=== PATIENT | male | born 1965 | race Caucasian/White ===

== ENCOUNTER 2024-03-08 11:47 | Inpatient (IN) ==
[2024-03-08 12:38] LABS: Basophils # (auto) 0.01 K/uL (0.00-0.20); Basophils % (auto) 0.1 %; Eosinophils # (auto) 0.02 K/uL (0.00-0.50); Eosinophils % (auto) 0.2 %; Hematocrit (blood only) 42.4 % (42.0-52.0); Hemoglobin 14.4 g/dl (14.0-18.0); Immature Granulocytes # (auto) 0.05 K/uL (0.01-0.20); Immature Granulocytes % (auto) 0.4 %; Lymphocytes # (auto) 0.74 K/uL (1.20-3.40); Lymphocytes % (auto) 6.2 %; Mean Corpuscular Hemoglobin 29.2 pg (25.0-34.0); Mean Platelet Volume 12.1 fL (9.4-12.4); Monocytes # (auto) 0.68 K/uL (0.11-0.59); Monocytes % (auto) 5.7 %; Neutrophils # (auto) 10.52 K/uL (1.40-6.50); Neutrophils % (auto) 87.4 %; Platelet Count 116 K/uL (130-400); RDW Coefficient of Variation 12.3 % (11.5-14.5); RDW Standard Deviation 38.4 fL (36.4-46.3); Red Blood Count 4.93 M/uL (4.70-6.10); White Blood Count 12.02 K/ul (4.8-10.8)
[2024-03-08 12:58] LABS: Albumin Globulin Ratio 1.7 (0.9-2); Albumin Level 4.8 gm/dl (3.4-5.0); BUN Creatinine Ratio 18.8 (10-20); Bilirubin,Total 1.2 mg/dl (0.2-1.0); Calcium 9.6 mg/dl (8.6-10.3); Creatinine Clr Calc Pharmacy 126.4 ml/min; Est GFR (African American) 112.5 ml/min; Est GFR (Non-African American) 97.1 ml/min; Globulin 2.8 gm/dl (2.5-4.0); Potassium 3.7 mmol/L (3.5-5.1); Total Protein 7.6 gm/dl (6.0-8.3)
--- NOTE | 2024-03-08 14:35 | Emergency Department Note ---
Impression & Plan Sepsis, Prostatitis, Low platelet count, BPH loc w urin obs/LUTS, Indwelling Chávez catheter present ED Provider Note NAME: ROSITA HAM AGE: 58 SEX: M : 1965 ARRIVES VIA: Walk-In INFORMANT: Patient ED PROVIDER(S): Shiva Fernández MD CHIEF COMPLAINT: Bladder spasm, fevers, referred. PLAN: Disposition: Admit MEDICAL DECISION MAKING: The patient is a pleasant 58-year-old gentleman with a past medical history of BPH with lower urinary tract symptoms, urinary retention, UTI, current indwelling Chávez catheter for the past month who presents to the emergency department via walk-in referred by his urology office after the patient had developed symptoms of bladder spasm yesterday and was instructed to provide a urine sample to rule out urinary infection. When the patient was dropping this urine sample off he was feeling feverishness and shaking and asked for his temperature be taken at the lab and was 103 per their report. After this they were referred to the emergency department for evaluation. Patient reports since then his chills have resolved but he was again febrile on assessment at 38.2. He reports some intermittent nausea. Denies any cough or congestion. Denies any chest pain or shortness of breath. Of note, the patient did arrive to emergency department during time of high volume, acuity and prolonged emergency department waiting times. Critical pathways initiated from triage. On evaluation the patient is no acute distress, febrile to 38.2 with heart in the 110s and vital signs otherwise stable. He appears clinically dry. Abdomen is nontender. WBC 12 K with neutrophil predominance though no left shift. H/H within normal limits. Platelets 116 K, decreased from prior and nonspecific. There is mild lymphopenia 0.74. Chemistry without metabolic acidosis. Lactic acid 1.5, within normal limits. Lipase is not elevated. LFTs unremarkable. UA obtained from catheter with new bag was suggestive of infection with positive nitrites and bacteria. CT of the pelvis was performed and demonstrates evidence of severe cystitis as well as suspicion for component of prostatitis with surrounding inflammation in the setting of the patient's symptoms. Blood cultures were obtained and empiric treatment was initiated with IV ceftriaxone which per the patient's prior culture which grew Klebsiella pneumonia this was sensitive. Patient treated with 30 cc/kg IBW of IV fluid hydration with normal saline including 2500 cc of normal saline in addition to 100 cc of IV APAP and 50 cc of IV ceftriaxone. Of note, given the patient's mild thrombocytopenia with lymphopenia testing for tickborne illness was ordered though less likely to be cause of fever/acute illness at this time. Lyme screen and Anaplasma Babesia smear were negative. Patient is agree with plan for admission for further management. Case was d/w [facility] hospitalist who will evaluate the patient for admission. Triage Nursing notes reviewed and agree them. Prior/external medical records reviewed Vital Signs: reviewed Differential diagnosis: Renal colic, UTI, appendicitis, diverticulitis, mesenteric ischemia, aortic pathology, infections, inflammatory bowel disease, PUD, biliary pathology, as well as other pathologies. ER treatment provided: See below. Diagnostics interpreted by me: Cardiac Monitoring: An order for continuous cardiac monitoring was placed and demonstrated sinus tachycardia, 113 bpm, no ectopy. Laboratory studies: See below Imaging studies: See below Consultation(s): Case was d/w [facility] hospitalist who will evaluate the patient for admission. HPI: The patient is a pleasant 58-year-old gentleman with a past medical history of BPH with lower urinary tract symptoms, urinary retention, UTI, current indwelling Chávez catheter for the past month who presents to the emergency department via walk-in referred by his urology office after the patient had developed symptoms of bladder spasm yesterday and was instructed to provide a urine sample to rule out urinary infection. When the patient was dropping this urine sample off he was feeling feverishness and shaking and asked for his temperature be taken at the lab and was 103 per their report. After this they were referred to the emergency department for evaluation. Patient reports since then his chills have resolved but he was again febrile on assessment at 38.2. He reports some intermittent nausea. Denies any cough or congestion. Denies any chest pain or shortness of breath. ROS: See above HPI for pertinent positives & negatives. A total of 10 systems reviewed and were otherwise negative. VITALS:See Below PHYSICAL EXAMINATION: GENERAL: Awake, alert, fatigued-appearing, in no distress HENT: Normocephalic, atraumatic. Oropharynx with dry mucous membranes and otherwise unremarkable. EYES: Normal conjunctiva. Sclera non-icteric. NECK: Supple. No nuchal rigidity. FROM. No JVD. RESPIRATORY: Clear to auscultation. CARDIAC: Tachycardic rate, normal rhythm. Extremities warm and well perfused. Pulses equal. ABDOMEN: Soft, non-distended. No tenderness to palpation. No rebound or guarding. No masses. : Chávez catheter present. MUSCULOSKELETAL: Chest examination reveals no tenderness. The back is symmetrical on inspection without obvious abnormality. There is no CVA tenderness to palpation. No joint edema. LOWER EXTREMITIES: Calves are equal size bilaterally and non-tender. No edema. No discoloration. NEURO: Normal sensorium. No sensory or motor deficits noted. SKIN: No rash or jaundice noted. ED COURSE: Critical Care: I have personally spent greater than 35 minutes of critical care time in the direct management of this patient. This includes bedside care, interpretation of diagnostic studies, and testing, discussion with consultants, patient, and family members, and other required patient management activities. This 35 minutes is in excess of all separately billable procedures. Shiva Fernández MD Past Med/Surg History Medical History (Updated 03/09/24 @ 00:32 by Shiva Fernández MD) TOMY (obstructive sleep apnea) Hypertension BPH loc w urin obs/LUTS Social History Smoking Status: Former smoker Tobacco Type: Cigars Do You Dip or Chew Tobacco: No; Hx Alcohol Use: Yes Alcohol type: beer and wine Hx Substance Use: No Preferred Language: Liberian Communication Ability: Effective Ultrasound Tester Required: No Beliefs That Will Affect Care: None Current Living Situation: Significant Other Other Information That Helps Us Care for You: No Feels Safe at Home: Yes Safety Concerns: Feels Safe At This Time Assistive Devices: CPAP Allergies Allergies Allergy/AdvReac Type Severity Reaction Status Date / Time pollen extracts Allergy Unknown Verified 03/08/24 20:37 SEASONAL Allergy Intermediate ITCHY EYES Uncoded 03/08/24 14:47 , CONGESTION Home Meds Home Medications Medication Instructions Recorded Confirmed coQ10 (ubiquinol) 100 mg capsule 0 mg PO QAM 02/04/24 03/08/24 amlodipine 5 mg tablet (Norvasc) 5 mg PO QAM 03/08/24 03/08/24 cholecalciferol (vitamin D3) 10 0 unit PO QAM 03/08/24 03/08/24 mcg (400 unit) tablet (Vitamin D3) tamsulosin 0.4 mg capsule 0.4 mg PO QAM 03/08/24 03/08/24 Previous Rx's Medication Instructions Recorded oxybutynin chloride 5 mg tablet 5 mg PO Q8H PRN bladder spasms #30 03/08/24 tabs Results & Data (ED) Vital Signs Vital Signs - 24 hr 03/08/24 11:55 03/08/24 14:51 03/08/24 14:53 Temperature 37.5 C 38.2 C H Temperature Source Oral Oral Pulse Rate 113 H 109 H Pulse Rate [Apical] 110 H Pulse Rate from SpO2 Sensor 109 H Respiratory Rate 18 18 24 Respiratory Effort / Characteristics Non-Labored Non-Labored Spontaneous Respiratory Depth Normal Normal Respiratory Pattern Regular Regular Blood Pressure 146/72 H Blood Pressure [Right Arm] 159/97 H Blood Pressure Mean 96 Blood Pressure Mean [Right Arm] 117 Blood Pressure Position [Right Arm] Lying Pulse Oximetry 98 97 96 Oxygen Delivery Method Room Air Room Air Sepsis Recent Fever Within 48 Hours Yes Sepsis New/Unexplained Change in Mental Status N/A Sepsis Action Taken by Nursing No Action Required 03/08/24 15:00 03/08/24 15:10 03/08/24 15:20 Temperature Temperature Source Pulse Rate 111 H 103 H 105 H Pulse Rate [Apical] Pulse Rate from SpO2 Sensor 112 H 102 H 103 H Respiratory Rate 20 15 15 Respiratory Effort / Characteristics Respiratory Depth Respiratory Pattern Blood Pressure Blood Pressure [Right Arm] Blood Pressure Mean Blood Pressure Mean [Right Arm] Blood Pressure Position [Right Arm] Pulse Oximetry 95 97 95 Oxygen Delivery Method Sepsis Recent Fever Within 48 Hours Sepsis New/Unexplained Change in Mental Status Sepsis Action Taken by Nursing 03/08/24 15:30 03/08/24 15:40 03/08/24 15:47 Temperature Temperature Source Pulse Rate 103 H 102 H Pulse Rate [Apical] Pulse Rate from SpO2 Sensor 103 H 102 H Respiratory Rate 17 20 Respiratory Effort / Characteristics Respiratory Depth Respiratory Pattern Blood Pressure 149/88 H Blood Pressure [Right Arm] Blood Pressure Mean 102 Blood Pressure Mean [Right Arm] Blood Pressure Position [Right Arm] Pulse Oximetry 95 95 Oxygen Delivery Method Sepsis Recent Fever Within 48 Hours Sepsis New/Unexplained Change in Mental Status Sepsis Action Taken by Nursing 03/08/24 15:47 03/08/24 15:48 03/08/24 16:07 Temperature Temperature Source Pulse Rate 91 H 99 H Pulse Rate [Apical] 99 H Pulse Rate from SpO2 Sensor 93 H 99 H Respiratory Rate 14 21 18 Respiratory Effort / Characteristics Non-Labored Respiratory Depth Normal Respiratory Pattern Blood Pressure Blood Pressure [Right Arm] 149/88 H Blood Pressure Mean Blood Pressure Mean [Right Arm] 108 Blood Pressure Position [Right Arm] Pulse Oximetry 94 94 94 Oxygen Delivery Method Room Air Sepsis Recent Fever Within 48 Hours Sepsis New/Unexplained Change in Mental Status Sepsis Action Taken by Nursing 03/08/24 16:10 03/08/24 16:15 03/08/24 16:15 Temperature Temperature Source Pulse Rate 95 H 95 H Pulse Rate [Apical] Pulse Rate from SpO2 Sensor 96 H 94 H Respiratory Rate 22 Respiratory Effort / Characteristics Respiratory Depth Respiratory Pattern Blood Pressure 135/65 Blood Pressure [Right Arm] Blood Pressure Mean 84 Blood Pressure Mean [Right Arm] Blood Pressure Position [Right Arm] Pulse Oximetry 94 96 Oxygen Delivery Method Sepsis Recent Fever Within 48 Hours Sepsis New/Unexplained Change in Mental Status Sepsis Action Taken by Nursing 03/08/24 16:20 03/08/24 16:30 03/08/24 16:30 Temperature Temperature Source Pulse Rate 95 H 91 H Pulse Rate [Apical] Pulse Rate from SpO2 Sensor 95 H 92 H Respiratory Rate 23 18 Respiratory Effort / Characteristics Respiratory Depth Respiratory Pattern Blood Pressure 135/75 Blood Pressure [Right Arm] Blood Pressure Mean 89 Blood Pressure Mean [Right Arm] Blood Pressure Position [Right Arm] Pulse Oximetry 90 92 Oxygen Delivery Method Sepsis Recent Fever Within 48 Hours Sepsis New/Unexplained Change in Mental Status Sepsis Action Taken by Nursing 03/08/24 16:40 03/08/24 16:50 03/08/24 17:00 Temperature Temperature Source Pulse Rate 90 84 90 Pulse Rate [Apical] Pulse Rate from SpO2 Sensor 90 85 Respiratory Rate 18 18 19 Respiratory Effort / Characteristics Respiratory Depth Respiratory Pattern Blood Pressure 128/73 Blood Pressure [Right Arm] Blood Pressure Mean 91 Blood Pressure Mean [Right Arm] Blood Pressure Position [Right Arm] Pulse Oximetry 94 93 95 Oxygen Delivery Method Room Air Sepsis Recent Fever Within 48 Hours Sepsis New/Unexplained Change in Mental Status Sepsis Action Taken by Nursing 03/08/24 17:30 03/08/24 18:00 Temperature Temperature Source Pulse Rate 96 H 90 Pulse Rate [Apical] Pulse Rate from SpO2 Sensor Respiratory Rate 15 14 Respiratory Effort / Characteristics Respiratory Depth Respiratory Pattern Blood Pressure 132/79 136/85 Blood Pressure [Right Arm] Blood Pressure Mean 96 102 Blood Pressure Mean [Right Arm] Blood Pressure Position [Right Arm] Pulse Oximetry 96 98 Oxygen Delivery Method Room Air Room Air Sepsis Recent Fever Within 48 Hours Sepsis New/Unexplained Change in Mental Status Sepsis Action Taken by Nursing Laboratory Data Attestation: I reviewed the patient's lab results. 03/08/24 12:15 03/08/24 12:15 Lab Results 03/08/24 03/08/24 03/08/24 Range/Units 12:15 15:05 15:49 WBC 12.02 H (4.8-10.8) K/ul RBC 4.93 (4.70-6.10) M/uL Hgb 14.4 (14.0-18.0) g/dl Hct 42.4 (42.0-52.0) % MCV 86.0 (80.0-100.0) fL MCH 29.2 (25.0-34.0) pg MCHC 34.0 (32.0-36.0) g/dL RDW Std Deviation 38.4 (36.4-46.3) fL RDW Coeff of [place] 12.3 (11.5-14.5) % Plt Count 116 L (130-400) K/uL MPV 12.1 (9.4-12.4) fL Immature Gran % (Auto) 0.4 % Neut % (Auto) 87.4 % Lymph % (Auto) 6.2 % [place] % (Auto) 5.7 % Eos % (Auto) 0.2 % Baso % (Auto) 0.1 % Neut # (Auto) 10.52 H (1.40-6.50) K/uL Lymph # (Auto) 0.74 L (1.20-3.40) K/uL [place] # (Auto) 0.68 H (0.11-0.59) K/uL Eos # (Auto) 0.02 (0.00-0.50) K/uL Baso # (Auto) 0.01 (0.00-0.20) K/uL Immature Gran # (Auto) 0.05 (0.01-0.20) K/uL ESR 10 (0-20) mm/hr Sodium 137 (136-145) mmol/L Potassium 3.7 (3.5-5.1) mmol/L Chloride 104 (98-107) mmol/L Carbon Dioxide 26 (21-32) mmol/L Anion Gap 7 (3-11) BUN 15 (6-23) mg/dl Creatinine 0.80 (0.6-1.4) mg/dl Est Cr Clr Drug Dosing 126.4 ml/min Est GFR ( Amer) 112.5 ml/min Est GFR (Non-Af Amer) 97.1 ml/min BUN/Creatinine Ratio 18.8 (10-20) Glucose 139 H (70-99(Fasting)) mg/dl Lactate 1.5 (0.4-2.0) mmol/L Calcium 9.6 (8.6-10.3) mg/dl Total Bilirubin 1.2 H (0.2-1.0) mg/dl AST 23 (13-39) U/L ALT 26 (7-52) U/L Alkaline Phosphatase 109 H (34-104) U/L C-Reactive Protein 0.64 H (0-0.5) mg/dl Total Protein 7.6 (6.0-8.3) gm/dl Albumin 4.8 (3.4-5.0) gm/dl Globulin 2.8 (2.5-4.0) gm/dl Albumin/Globulin Ratio 1.7 (0.9-2) Lipase 15 (11-82) U/L Procalcitonin Cancelled Urine Color Yellow Urine Appearance Clear (Clear) Urine pH 8.5 H (4.5-7.5) Ur Specific [place] 1.013 (1.000-1.030) Urine Protein Trace H (Negative) Urine Glucose (UA) Negative (Negative) Urine Ketones 1+ H (Negative) Urine Blood 3+ H (Negative) Urine Nitrite Positive A (Negative) Urine Bilirubin Negative (Negative) Urine Urobilinogen Negative (Negative) Ur Leukocyte Esterase 3+ H (Negative) Urine WBC (Auto) >50 H (0-5) /hpf Urine RBC (Auto) >20 H (0-2) /hpf U Hyaline Cast (Auto) 0-2 (0-2) /lpf U Epithel Cells (Auto) 0-2 (0-2) /hpf Urine Bacteria (Auto) 1+ H (None Seen) Adenovirus (PCR) Not Detected (NotDetected) Anaplasma Smear See Comment Babesia Smear See Comment B. pertussis DNA (PCR) Not Detected (NotDetected) B.parapertussis DNA PCR Not Detected (NotDetected) Lyme Disease Screen Negative (Negative) C. pneumoniae DNA (PCR) Not Detected (NotDetected) Coronavirus OC43 (PCR) Not Detected (NotDetected) Coronavirus HKU1 (PCR) Not Detected (NotDetected) Coronavirus 229E (PCR) Not Detected (NotDetected) SARS-CoV-2 (PCR) Not Detected (NotDetected) Coronavirus NL63 (PCR) Not Detected (NotDetected) Human Metapneumovir PCR Not Detected (NotDetected) Influenza Type A (PCR) Not Detected (NotDetected) Influenza Type B (PCR) Not Detected (NotDetected) M. pneumoniae (PCR) Not Detected (NotDetected) Parainfluenza 1 (PCR) Not Detected (NotDetected) Parainfluenza 2 (PCR) Not Detected (NotDetected) Parainfluenza 3 (PCR) Not Detected (NotDetected) Parainfluenza 4 (PCR) Not Detected (NotDetected) RSV (PCR) Not Detected (NotDetected) Entero/Rhino (PCR) Not Detected (NotDetected) 03/08/24 Range/Units 17:49 WBC (4.8-10.8) K/ul RBC (4.70-6.10) M/uL Hgb (14.0-18.0) g/dl Hct (42.0-52.0) % MCV (80.0-100.0) fL MCH (25.0-34.0) pg MCHC (32.0-36.0) g/dL RDW Std Deviation (36.4-46.3) fL RDW Coeff of Ro[place] (11.5-14.5) % Plt Count (130-400) K/uL MPV (9.4-12.4) fL Immature Gran % (Auto) % Neut % (Auto) % Lymph % (Auto) % [place] % (Auto) % Eos % (Auto) % Baso % (Auto) % Neut # (Auto) (1.40-6.50) K/uL Lymph # (Auto) (1.20-3.40) K/uL [place] # (Auto) (0.11-0.59) K/uL Eos # (Auto) (0.00-0.50) K/uL Baso # (Auto) (0.00-0.20) K/uL Immature Gran # (Auto) (0.01-0.20) K/uL ESR (0-20) mm/hr Sodium (136-145) mmol/L Potassium (3.5-5.1) mmol/L Chloride (98-107) mmol/L Carbon Dioxide (21-32) mmol/L Anion Gap (3-11) BUN (6-23) mg/dl Creatinine (0.6-1.4) mg/dl Est Cr Clr Drug Dosing ml/min Est GFR ( Amer) ml/min Est GFR (Non-Af Amer) ml/min BUN/Creatinine Ratio (10-20) Glucose (70-99(Fasting)) mg/dl Lactate (0.4-2.0) mmol/L Calcium (8.6-10.3) mg/dl Total Bilirubin (0.2-1.0) mg/dl AST (13-39) U/L ALT (7-52) U/L Alkaline Phosphatase (34-104) U/L C-Reactive Protein (0-0.5) mg/dl Total Protein (6.0-8.3) gm/dl Albumin (3.4-5.0) gm/dl Globulin (2.5-4.0) gm/dl Albumin/Globulin Ratio (0.9-2) Lipase (11-82) U/L Procalcitonin Urine Color Yellow Urine Appearance Clear (Clear) Urine pH 7.5 (4.5-7.5) Ur Specific [place] 1.021 (1.000-1.030) Urine Protein Negative (Negative) Urine Glucose (UA) Negative (Negative) Urine Ketones Negative (Negative) Urine Blood 3+ H (Negative) Urine Nitrite Negative (Negative) Urine Bilirubin Negative (Negative) Urine Urobilinogen Negative (Negative) Ur Leukocyte Esterase 2+ H (Negative) Urine WBC (Auto) >50 H (0-5) /hpf Urine RBC (Auto) >20 H (0-2) /hpf U Hyaline Cast (Auto) 0-2 (0-2) /lpf U Epithel Cells (Auto) 0-2 (0-2) /hpf Urine Bacteria (Auto) None Seen (None Seen) Adenovirus (PCR) (NotDetected) Anaplasma Smear Babesia Smear B. pertussis DNA (PCR) (NotDetected) B.parapertussis DNA PCR (NotDetected) Lyme Disease Screen (Negative) C. pneumoniae DNA (PCR) (NotDetected) Coronavirus OC43 (PCR) (NotDetected) Coronavirus HKU1 (PCR) (NotDetected) Coronavirus 229E (PCR) (NotDetected) SARS-CoV-2 (PCR) (NotDetected) Coronavirus NL63 (PCR) (NotDetected) Human Metapneumovir PCR (NotDetected) Influenza Type A (PCR) (NotDetected) Influenza Type B (PCR) (NotDetected) M. pneumoniae (PCR) (NotDetected) Parainfluenza 1 (PCR) (NotDetected) Parainfluenza 2 (PCR) (NotDetected) Parainfluenza 3 (PCR) (NotDetected) Parainfluenza 4 (PCR) (NotDetected) RSV (PCR) (NotDetected) Entero/Rhino (PCR) (NotDetected) Administered Medications Oxybutynin Chloride (Oxybutynin Chloride 5 Mg Tab) 5 mg PO Q8H PRN PRN Reason: bladder spasms Stop: 04/07/24 20:30 Last Admin: 03/08/24 21:16 Dose: 5 mg Documented By: BEARTIS Discontinued Medications Acetaminophen (Ofirmev) 1,000 mg in 100 mls @ 400 mls/hr IV NOW STA Stop: 03/08/24 15:12 Last Infusion: 03/08/24 16:05 Dose: Infused Documented By: Admin: 03/08/24 15:26 Dose: 400 mls/hr Documented By: MONIQUE Sodium Chloride (Nss) 1,000 mls @ 999 mls/hr IV .Q1H1M MARGI Stop: 03/08/24 17:00 Last Infusion: 03/08/24 18:00 Dose: Infused Documented By: Admin: 03/08/24 16:37 Dose: 999 mls/hr Documented By: Infusion: 04/18/24 16:34 Dose: Infused Documented By: Admin: 03/08/24 15:26 Dose: 999 mls/hr Documented By: MONIQUE Sodium Chloride (Nss) 500 mls @ 999 mls/hr IV .Q31M ONE Stop: 03/08/24 15:30 Last Infusion: 03/08/24 16:34 Dose: Infused Documented By: Admin: 03/08/24 15:26 Dose: 999 mls/hr Documented By: MONIQUE Ceftriaxone Sodium (Rocephin) 2,000 mg in 50 mls @ 100 mls/hr IV NOW STA Stop: 03/08/24 15:29 Last Infusion: 03/08/24 16:43 Dose: Infused Documented By: Admin: 03/08/24 16:11 Dose: 100 mls/hr Documented By: MONIQUE Ioversol (Optiray 320 100ml) 94 ml IV ONCE ONE Stop: 03/08/24 16:02 Last Admin: 03/08/24 16:01 Dose: 94 ml Documented By: ROBERT Ondansetron HCl (Ondansetron Inj 2 Mg/Ml 2 Ml Vial) 4 mg IV NOW STA Stop: 03/08/24 15:03 Last Admin: 03/08/24 15:26 Dose: 4 mg Documented By: MONIQUE Imaging Data Radiologist's Impression: Abdomen/Pelvis CT 03/08/24 15:00 CT SCAN OF THE ABDOMEN AND PELVIS WITH IV CONTRAST CLINICAL HISTORY: Sepsis. COMPARISON STUDY: Abdominal CT dated 02/16/2024. TECHNIQUE: Following the IV administration of 94 cc of Optiray 320, CT scan of the abdomen and pelvis is performed from the lung bases to the proximal femora. Images are reviewed in the axial, sagittal, and coronal planes. IV contrast was administered without complication. A dose lowering technique was utilized adhering to the principles of ALARA. CT DOSE: 1366.17 mGy.cm FINDINGS: Lung bases: The heart is normal in size and without pericardial effusion. The lung bases are clear. Liver: The contrast-enhanced liver is normal in size, contour, and attenuation. There is no intrahepatic biliary ductal dilatation. The hepatic veins and portal veins are patent. Gallbladder: Unremarkable. Spleen: Normal in size and attenuation. Pancreas: Unremarkable. Adrenal glands: Unremarkable. Kidneys: The contrast enhanced kidneys are normal in size and without hydronephrosis. The kidneys enhance symmetrically. Renal cysts measure up to 3.5 cm. Additional subcentimeter cortical hypodensities also likely represent cysts but are too small for definitive characterization. Abdominal vasculature: The abdominal aorta is normal in course and caliber noting mild atherosclerotic calcification. Bowel: No bowel obstruction is seen. The appendix is well-visualized and normal. Peritoneum: There is no intraperitoneal free air or abdominal ascites. There is a fat-containing umbilical hernia. Lymphadenopathy: None. Pelvic viscera: The prostate gland is markedly enlarged and heterogeneous. The bladder is partially decompressed and a Chávez catheter. The bladder wall is markedly thickened with surrounding inflammation. There are foci of nonspecific intraluminal gas. Inflammatory change is also seen around the prostate and seminal vesicles. Skeletal structures: There is mild to moderate lumbosacral spondylosis. No lytic or blastic lesions are seen. IMPRESSION: 1. There is evidence of a severe cystitis. Correlate with clinical findings and urinalysis. 2. Marked prostatomegaly. Correlate with serum PSA levels. 3. Infiltration is also seen around the prostate and seminal vesicles. A concurrent prostatitis is not excluded. 4. Additional findings as above. ACT 112: Negative or not required by law. Electronically signed by: Gustavo Fournier M.D. 03/08/2024 4:21 PM Discharge Plan Visit Data Chief Complaint: Fever Stated Complaint: FEVER, ED Provider: Shiva Fernández Discharge Problem: Sepsis, Prostatitis, Low platelet count, BPH loc w urin obs/LUTS, Indwelling Chávez catheter present Patient Disposition: Admitted As Inpatient Discharge Instructions Interventions: ED Discharge Assessment Last Done: 03/08/24 20:31 Discharge Problem: Sepsis Qualifiers: Sepsis type: sepsis due to unspecified organism Sepsis acute organ dysfunction status: without acute organ dysfunction Qualified Code(s): A41.9 - Sepsis, unspecified organism Prostatitis Qualifiers: Prostatitis type: acute Qualified Code(s): N41.0 - Acute prostatitis
[2024-03-08] MEDS: ONDANSETRON INJ 2 MG/ML 2 ML VIAL IV STA (15:26)
[2024-03-08] MEDS: ACETAMINOPHEN 1,000 MG/100 ML VIAL IV STA (15:26)
[2024-03-08] MEDS: SODIUM CHLORIDE 0.9% 500 ML IV ONE (15:26)
[2024-03-08] MEDS: SODIUM CHLORIDE 0.9% 1,000 ML IV SCH (15:26)
[2024-03-08] MEDS: OPTIRAY 320 100ml IV ONE (16:01)
[2024-03-08] MEDS: cefTRIAXone SODIUM 2,000 MG/50 ML BAG IV STA (16:11)
--- NOTE | 2024-03-08 16:23 | CT Scan Report ---
CT SCAN OF THE ABDOMEN AND PELVIS WITH IV CONTRAST CLINICAL HISTORY: Sepsis. COMPARISON STUDY: Abdominal CT dated 02/16/2024. TECHNIQUE: Following the IV administration of 94 cc of Optiray 320, CT scan of the abdomen and pelvi s is performed from the lung bases to the proximal femora. Images are reviewed in the axial, sagittal , and coronal planes. IV contrast was administered without complication. A dose lowering technique wa s utilized adhering to the principles of ALARA. CT DOSE: 1366.17 mGy.cm FINDINGS: Lung bases: The heart is normal in size and without pericardial effusion. The lung bases are clear. Liver: The contrast-enhanced liver is normal in size, contour, and attenuation. There is no intrahepa tic biliary ductal dilatation. The hepatic veins and portal veins are patent. Gallbladder: Unremarkable. Spleen: Normal in size and attenuation. Pancreas: Unremarkable. Adrenal glands: Unremarkable. Kidneys: The contrast enhanced kidneys are normal in size and without hydronephrosis. The kidneys enh ance symmetrically. Renal cysts measure up to 3.5 cm. Additional subcentimeter cortical hypodensities also likely represent cysts but are too small for definitive characterization. Abdominal vasculature: The abdominal aorta is normal in course and caliber noting mild atheroscleroti c calcification. Bowel: No bowel obstruction is seen. The appendix is well-visualized and normal. Peritoneum: There is no intraperitoneal free air or abdominal ascites. There is a fat-containing umbi lical hernia. Lymphadenopathy: None. Pelvic viscera: The prostate gland is markedly enlarged and heterogeneous. The bladder is partially d ecompressed and a Chávez catheter. The bladder wall is markedly thickened with surrounding inflammatio n. There are foci of nonspecific intraluminal gas. Inflammatory change is also seen around the prosta te and seminal vesicles. Skeletal structures: There is mild to moderate lumbosacral spondylosis. No lytic or blastic lesions a re seen. IMPRESSION: 1. There is evidence of a severe cystitis. Correlate with clinical findings and urinalysis. 2. Marked prostatomegaly. Correlate with serum PSA levels. 3. Infiltration is also seen around the prostate and seminal vesicles. A concurrent prostatitis is no t excluded. 4. Additional findings as above. ACT 112: Negative or not required by law. Electronically signed by: Gustavo Fournier M.D. 03/08/2024 4:21 PM
[2024-03-08 16:24] LABS: Appearance Urine Clear (Clear); Bacteria Urine Automated 1+ (None Seen); Bilirubin Urine Negative (Negative); Blood Urine 3+ (Negative); Cast Urine Automated 0-2 /lpf (0-2); Color Urine Yellow; Epithelial Cell Urine Auto 0-2 /hpf (0-2); Glucose Urine UA Negative (Negative); Ketones Urine 1+ (Negative); Leukocyte Esterase Urine 3+ (Negative); Nitrite Urine Positive (Negative); Protein Urine Trace (Negative); RBC Urine Automated >20 /hpf (0-2); Specific Gravity Urine 1.013 (1.000-1.030); Urobilinogen Urine Negative (Negative); WBC Urine Automated >50 /hpf (0-5); pH Urine 8.5 (4.5-7.5)
[2024-03-08 16:55] LABS: Adenovirus PCR Not Detected (NotDetected); Bordetella parapertussis PCR Not Detected (NotDetected); Bordetella pertussis PCR Not Detected (NotDetected); Chlamydia pneumoniae PCR Not Detected (NotDetected); Coronavirus 229E PCR Not Detected (NotDetected); Coronavirus CoV-2 (COVID19)PCR Not Detected (NotDetected); Coronavirus HKU1 PCR Not Detected (NotDetected); Coronavirus NL63 PCR Not Detected (NotDetected); Coronavirus OC43PCR Not Detected (NotDetected); Human Metapneumovirus PCR Not Detected (NotDetected); Influenza A PCR Not Detected (NotDetected); Influenza B PCR Not Detected (NotDetected); Mycoplasma pneumoniae PCR Not Detected (NotDetected); Parainfluenza Virus 1 PCR Not Detected (NotDetected); Parainfluenza Virus 2 PCR Not Detected (NotDetected); Parainfluenza Virus 3 PCR Not Detected (NotDetected); Parainfluenza Virus 4 PCR Not Detected (NotDetected); Respiratory Syncytial VirusPCR Not Detected (NotDetected); Rhinovirus/Enterovirus PCR Not Detected (NotDetected)
[2024-03-08 17:34] LABS: C Reactive Protein 0.64 mg/dl (0-0.5)
--- NOTE | 2024-03-08 18:00 | History & Physical Report ---
Date of Service March 08, 2024 Assessment & Plan (1) Prostatitis: Plan: In setting of cooper catheter [initially inserted 02/04/24 for acute urinary retention] IV ceftriaxone (recently grown 02/09 Klebsiella pneumoniae sensitive to cephalosporins) pending urine and blood cultures Recommend 4 weeks of antibiotics Follow up with urology on discharge for ongoing management (2) Sepsis: Plan: Source = prostate/urine Lactate 1.5 and no hypotension to suggest need for full 30cc/kg fluid bolus (3) Newly recognized murmur: Plan: TTE ordered (4) BPH loc w urin obs/LUTS: Plan: Acute urine retention on 02/03, cooper catheter placed since that time (5) Hypertension: Plan: Continue amlodipine (6) TOMY (obstructive sleep apnea): Plan: CPAP HS Plan VTE Prophylaxis - Lovenox 40mg SQ daily Diet - regular Disposition - admit to PCU Admission and Anticipated Discharge Date Admission Date: March 08, 2024 History of Present Illness Chief Complaint: Urinary symptoms Primary Care Provider: DO Jose Mazariegos Juvencio is a 58-year-old male who presents to the ER with chills that started today. He has a significant history of urinary retention which occurred on February 03 reportedly out of the blue although he may have had some mild problems with his urinary stream prior to this. Cooper catheter was inserted and UA was non infected appearing. He developed bladder spasms and returned to the ER on 02/10 when his UA appeared infected and he was started on Keflex for what was subsequently Klebsiella cultured. He was seen by urology on 02/13 and passed trial without cooper but subsequently returned to the ER on 02/15 back in urine retention and cooper catheter was replaced. For the last few days he has developed bladder spasms again and today started having chills. He called Dr Zhu office and came to the lab to give a urine sample when they took his temperature it was 103.5 Fahrenheit therefore he was advised to go to the ER. Initial urine analysis/culture was taken from his old cooper catheter however since his cooper catheter has been exchanged with new sample taken from his new cooper. He denies any back/flank pain, no testicular pain. Allergies Allergy/AdvReac Type Severity Reaction Status Date / Time pollen extracts Allergy Unknown Verified 03/08/24 20:37 SEASONAL Allergy Intermediate ITCHY EYES Uncoded 03/08/24 14:47 , CONGESTION Home Medications Medication Instructions Recorded Confirmed Type coQ10 (ubiquinol) 100 mg capsule 0 mg PO QAM 02/04/24 03/08/24 History amlodipine 5 mg tablet (Norvasc) 5 mg PO QAM 03/08/24 03/08/24 History cholecalciferol (vitamin D3) 10 0 unit PO QAM 03/08/24 03/08/24 History mcg (400 unit) tablet (Vitamin D3) oxybutynin chloride 5 mg tablet 5 mg PO Q8H PRN bladder spasms #30 03/08/24 03/08/24 Rx tabs tamsulosin 0.4 mg capsule 0.4 mg PO QAM 03/08/24 03/08/24 History Past Med/Surg History Medical History (Updated 03/09/24 @ 06:17 by Shadi Vega MD) TOMY (obstructive sleep apnea) Hypertension BPH loc w urin obs/LUTS Social History Smoking Status: Former smoker Tobacco Type: Cigars Do You Dip or Chew Tobacco: No; Hx Alcohol Use: Yes Alcohol type: beer and wine Hx Substance Use: No Preferred Language: B[place]ian Communication Ability: Effective Lead Housekeeper Required: No Beliefs That Will Affect Care: None Current Living Situation: Significant Other Other Information That Helps Us Care for You: No Feels Safe at Home: Yes Safety Concerns: Feels Safe At This Time Assistive Devices: CPAP Review of Systems Review of Systems: All systems reviewed & are unremarkable except as noted in HPI & below Physical Exam Constitutional: WD/WN, vitals as above Eyes: PERRL, conjunctivae normal, anicteric sclerae ENMT: Mouth: oral mucous membranes not dry Respiratory: normal respiratory effort, lungs clear to auscultation Cardiovascular: Rate/Rhythm: regular rate and regular rhythm Heart Sounds: + murmur Extremities: normal capillary refill; no calf tenderness and no pedal edema Gastrointestinal (Abdomen): normal bowel sounds, soft, nontender, no hepatosplenomegaly Musculoskeletal: no cyanosis or clubbing, extremities motor strength 5/5 Skin: no rashes, warm and dry Neurologic: moves all extremities and awake; not confused Psychiatric: A+Ox3, euthymic affect Genitourinary: no CVA tenderness Results & Data Results & Data Vital Signs (Past 12 Hours) Vital Signs Temp Pulse Pulse Resp BP BP Pulse Ox 03/08/24 17:30 96 H 15 132/79 96 03/08/24 17:00 90 19 128/73 95 03/08/24 16:50 84 18 93 03/08/24 16:40 90 18 94 03/08/24 16:30 91 H 18 92 03/08/24 16:30 135/75 03/08/24 16:20 95 H 23 90 03/08/24 16:15 95 H 96 03/08/24 16:15 135/65 03/08/24 16:10 95 H 22 94 03/08/24 16:07 99 H 18 94 03/08/24 15:48 99 H 21 149/88 H 94 03/08/24 15:47 91 H 14 94 03/08/24 15:47 149/88 H 03/08/24 15:40 102 H 20 95 03/08/24 15:30 103 H 17 95 03/08/24 15:20 105 H 15 95 03/08/24 15:10 103 H 15 97 03/08/24 15:00 111 H 20 95 03/08/24 14:53 109 H 24 96 03/08/24 14:51 38.2 C H 110 H 18 159/97 H 97 03/08/24 11:55 37.5 C 113 H 18 146/72 H 98 O2 Del Method 03/08/24 17:30 Room Air 03/08/24 17:00 Room Air 03/08/24 16:50 03/08/24 16:40 03/08/24 16:30 03/08/24 16:30 03/08/24 16:20 03/08/24 16:15 03/08/24 16:15 03/08/24 16:10 03/08/24 16:07 03/08/24 15:48 Room Air 03/08/24 15:47 03/08/24 15:47 03/08/24 15:40 03/08/24 15:30 03/08/24 15:20 03/08/24 15:10 03/08/24 15:00 03/08/24 14:53 03/08/24 14:51 Room Air 03/08/24 11:55 Room Air Laboratory Results Abnormal lab results 03/08/24 03/08/24 Range/Units 12:15 15:49 WBC 12.02 H (4.8-10.8) K/ul Plt Count 116 L (130-400) K/uL Neut # (Auto) 10.52 H (1.40-6.50) K/uL Lymph # (Auto) 0.74 L (1.20-3.40) K/uL [place] # (Auto) 0.68 H (0.11-0.59) K/uL Glucose 139 H (70-99(Fasting)) mg/dl Total Bilirubin 1.2 H (0.2-1.0) mg/dl Alkaline Phosphatase 109 H (34-104) U/L C-Reactive Protein 0.64 H (0-0.5) mg/dl Urine pH 8.5 H (4.5-7.5) Urine Protein Trace H (Negative) Urine Ketones 1+ H (Negative) Urine Blood 3+ H (Negative) Urine Nitrite Positive A (Negative) Ur Leukocyte Esterase 3+ H (Negative) Urine WBC (Auto) >50 H (0-5) /hpf Urine RBC (Auto) >20 H (0-2) /hpf Urine Bacteria (Auto) 1+ H (None Seen) Diagnostic Findings CT SCAN OF THE ABDOMEN AND PELVIS WITH IV CONTRAST CLINICAL HISTORY: Sepsis. COMPARISON STUDY: Abdominal CT dated 02/16/2024. TECHNIQUE: Following the IV administration of 94 cc of Optiray 320, CT scan of the abdomen and pelvis is performed from the lung bases to the proximal femora. Images are reviewed in the axial, sagittal, and coronal planes. IV contrast was administered without complication. A dose lowering technique was utilized adhering to the principles of ALARA. CT DOSE: 1366.17 mGy.cm FINDINGS: Lung bases: The heart is normal in size and without pericardial effusion. The lung bases are clear. Liver: The contrast-enhanced liver is normal in size, contour, and attenuation. There is no intrahepatic biliary ductal dilatation. The hepatic veins and portal veins are patent. Gallbladder: Unremarkable. Spleen: Normal in size and attenuation. Pancreas: Unremarkable. Adrenal glands: Unremarkable. Kidneys: The contrast enhanced kidneys are normal in size and without hydronephrosis. The kidneys enhance symmetrically. Renal cysts measure up to 3.5 cm. Additional subcentimeter cortical hypodensities also likely represent cysts but are too small for definitive characterization. Abdominal vasculature: The abdominal aorta is normal in course and caliber noting mild atherosclerotic calcification. Bowel: No bowel obstruction is seen. The appendix is well-visualized and normal. Peritoneum: There is no intraperitoneal free air or abdominal ascites. There is a fat-containing umbilical hernia. Lymphadenopathy: None. Pelvic viscera: The prostate gland is markedly enlarged and heterogeneous. The bladder is partially decompressed and a Cooper catheter. The bladder wall is markedly thickened with surrounding inflammation. There are foci of nonspecific intraluminal gas. Inflammatory change is also seen around the prostate and seminal vesicles. Skeletal structures: There is mild to moderate lumbosacral spondylosis. No lytic or blastic lesions are seen. IMPRESSION: 1. There is evidence of a severe cystitis. Correlate with clinical findings and urinalysis. 2. Marked prostatomegaly. Correlate with serum PSA levels. 3. Infiltration is also seen around the prostate and seminal vesicles. A concurrent prostatitis is not excluded. 4. Additional findings as above. Medications Administered ER medications given: Acetaminophen 1000 mg IV Normal saline 1 L bolus Normal saline 500 mL bolus Ceftriaxone 2 g IV Ondansetron 4 mg IV ECG Rate (beats per minute): 84 Rhythm: normal sinus Findings: no acute ischemic change Comparison ECG Date: from (May 27, 2009) Change: no significant change Code Status & VTE Plan Code Status Full VTE Prophylaxis Plan VTE Prophylaxis will be ordered: Yes PG Care Time/CCT Total # of Minutes Spent Total Time Spent with Patient: Total time spent is greater than 50% in coordination of care (as documented) at patient's floor/unit and/or counseling patient: Coding Level of Care Code 84273 INT INP/OBS CARE 3/75MIN Diagnoses Prostatitis N41.9 Sepsis A41.9 Newly recognized murmur R01.1 BPH loc w urin obs/LUTS N40.1 Hypertension I10 Hypertension type: primary hypertension TOMY (obstructive sleep apnea) G47.33 (5) Hypertension Hypertension type: primary hypertension Qualified Code(s): I10 - Essential (primary) hypertension
[2024-03-08 18:35] LABS: Appearance Urine Clear (Clear); Bacteria Urine Automated None Seen (None Seen); Bilirubin Urine Negative (Negative); Blood Urine 3+ (Negative); Cast Urine Automated 0-2 /lpf (0-2); Color Urine Yellow; Epithelial Cell Urine Auto 0-2 /hpf (0-2); Glucose Urine UA Negative (Negative); Ketones Urine Negative (Negative); Leukocyte Esterase Urine 2+ (Negative); Nitrite Urine Negative (Negative); Protein Urine Negative (Negative); RBC Urine Automated >20 /hpf (0-2); Specific Gravity Urine 1.021 (1.000-1.030); Urobilinogen Urine Negative (Negative); WBC Urine Automated >50 /hpf (0-5); pH Urine 7.5 (4.5-7.5)
[2024-03-08] MEDS ORDERED: ONDANSETRON INJ 2 MG/ML 2 ML VIAL IV PRN (20:31)
[2024-03-08] MEDS ORDERED: KETOROLAC TROMETHAMINE 15 MG/ML VIAL IV PRN (20:31)
[2024-03-08] MEDS: oxyBUTYnin chloride 5 MG TAB PO PRN (21:16)
[2024-03-09] MEDS: ACETAMINOPHEN 325 MG TAB PO PRN (04:16)
[2024-03-09 07:01] LABS: Basophils # (auto) 0.03 K/uL (0.00-0.20); Basophils % (auto) 0.2 %; Eosinophils # (auto) 0.06 K/uL (0.00-0.50); Eosinophils % (auto) 0.4 %; Hematocrit (blood only) 35.7 % (42.0-52.0); Hemoglobin 12.5 g/dl (14.0-18.0); Immature Granulocytes # (auto) 0.06 K/uL (0.01-0.20); Immature Granulocytes % (auto) 0.4 %; Lymphocytes # (auto) 2.05 K/uL (1.20-3.40); Lymphocytes % (auto) 12.9 %; Mean Corpuscular Hemoglobin 29.8 pg (25.0-34.0); Mean Corpuscular Volume 85.2 fL (80.0-100.0); Mean Platelet Volume 12.4 fL (9.4-12.4); Monocytes # (auto) 1.25 K/uL (0.11-0.59); Monocytes % (auto) 7.8 %; Neutrophils # (auto) 12.48 K/uL (1.40-6.50); Neutrophils % (auto) 78.3 %; Platelet Count 110 K/uL (130-400); RDW Coefficient of Variation 12.6 % (11.5-14.5); RDW Standard Deviation 38.8 fL (36.4-46.3); Red Blood Count 4.19 M/uL (4.70-6.10); White Blood Count 15.93 K/ul (4.8-10.8)
[2024-03-09 07:09] LABS: BUN Creatinine Ratio 15.6 (10-20); Calcium 8.8 mg/dl (8.6-10.3); Creatinine Clr Calc Pharmacy 112.2 ml/min; Est GFR (African American) 107.2 ml/min; Est GFR (Non-African American) 92.5 ml/min; Potassium 3.6 mmol/L (3.5-5.1)
--- NOTE | 2024-03-09 08:14 | Hospitalist Progress Note ---
Date of Service March 09, 2024 Assessment & Plan (1) Sepsis: Plan: 58 y/o man with abnormal prostate and cooper catheter admitted with sepsis. Admitting labs and CT highly suspicious for UTI and prostatitis. Blood culture prelim with MSSA by molecular assay. WBC 12 --> 16 Tm 38.4 remained tachycardic overnight no hypotension, thrombocytopenia with Plt 110 related to sepsis MSSA bacteremia -discussed with [facility] pharmacist - changed abx to cefazolin to cover MSSA bacteremia. TTE pending -GPCs also in urine cultures (the culture from 17:49 on 03/08 is the specimen taken AFTER the cooper was exchanged) -may need broader coverage for prostatitis - consulted ID Dr. Muse, spoke with her today agrees with cefazolin for now and will consult -repeat blood cultures tomorrow, for clearance (2) Prostatitis: Plan: In setting of cooper catheter [initially inserted 02/04/24 for acute urinary retention] PSA 6 on 02/20, increased to 7.5 on admission. Markedly enlarged and heterogeneous prostate on CT with inflammation around prostate and seminal vesicles. Markedly thickened bladder wall with surrounding inflammation with foci of intraluminal gas -notified his urologist Dr. Zhu of clinical picture. Per his last note needs eval for possible prostate cancer, outpatient MRI was planned then possible surgery 03/20. -see above (3) Newly recognized murmur: Plan: TTE ordered (4) BPH loc w urin obs/LUTS: Plan: Acute urine retention on 02/03, cooper catheter since that time. Last catheter change 03/08 in ED (5) Hypertension: Plan: Continue amlodipine (6) TOMY (obstructive sleep apnea): Plan: CPAP HS Plan VTE Prophylaxis - Lovenox 40mg SQ daily Diet - regular Disposition - admit to PCU Admission and Anticipated Discharge Date Admission Date: March 08, 2024 Subjective Main symptom has been increased bladder spasms, then yesterday had fever Spasms a little improved today Physical Exam 2 Physical Exam: PHYSICAL EXAMINATION Last 24h vital signs reviewed, see documentation in flowsheet General: comfortable appearing, no distress HEENT: Normocephalic, atraumatic, pupils round and equal, sclerae anicteric, no conjunctival injection, moist mucus membranes Lungs: Normal respiratory effort. Clear to auscultation bilaterally. No RRW Heart: Regular rate and rhythm, holosystolic murmur loudest at apex, no radiation to carotid/sc area. No JVD Abdomen: Soft, nontender, nondistended. Bowel sounds present. : cooper catheter yellow urine Extremities: Warm, dry, well-perfused. No extremity edema. No lesions of hands/feet or fingernails. Onychomycosis toes. Neuro: Alert and oriented x 4, face symmetric, moves 4 extremities well Psych: Normal affect and behavior Results & Data Results & Data Vital Signs (Past 12 Hours) Vital Signs Temp Pulse Pulse Resp BP BP Pulse Ox 03/09/24 07:06 36.8 C 72 18 119/71 97 03/09/24 03:50 85 20 98 03/09/24 03:07 38.4 C H 76 20 146/80 H 96 03/09/24 00:46 73 22 97 03/08/24 22:20 81 18 98 03/08/24 22:10 37.7 C H 85 18 144/77 H 99 03/08/24 21:00 96 H 16 133/75 98 03/08/24 20:30 95 H 15 137/79 97 O2 Del Method FiO2 03/09/24 07:06 Room Air 03/09/24 03:50 21 03/09/24 03:07 Room Air, Nasal CPAP 03/09/24 00:46 21 03/08/24 22:20 03/08/24 22:10 Room Air 03/08/24 21:00 Room Air 03/08/24 20:30 Room Air Laboratory Results 03/09/24 05:38 03/09/24 05:38 PG Care Time/CCT Total # of Minutes Spent Total Time Spent with Patient: Total time spent is greater than 50% in coordination of care (as documented) at patient's floor/unit and/or counseling patient: Coding Level of Care Code 33191 SUB INP/OBS CARE 3/50MIN Diagnoses Sepsis A41.9 Prostatitis N41.9 Newly recognized murmur R01.1 BPH loc w urin obs/LUTS N40.1 Hypertension I10 Hypertension type: primary hypertension TOMY (obstructive sleep apnea) G47.33 (5) Hypertension Hypertension type: primary hypertension Qualified Code(s): I10 - Essential (primary) hypertension
[2024-03-09] MEDS: ENOXAPARIN INJ 40 MG/0.4 ML SYR SQ SCH (08:58)
[2024-03-09] MEDS: TAMSULOSIN HCL 0.4 MG CAP PO SCH (08:59)
[2024-03-09] MEDS: amLODIPine BESYLATE 5 MG TAB PO SCH (08:59)
[2024-03-09 09:28] LABS: A calco-baum cmplx NotReported Not Detected (NotDetected); Bact fragilis Not Reported Not Detected (NotDetected); Blood Culture Id Panel See PCR Comment (NotDetected); C auris Not Reported Not Detected (NotDetected); Calbicans Not Reported Not Detected (NotDetected); Candida glabrata Not Reported Not Detected (NotDetected); Candida krusei Not Reported Not Detected (NotDetected); Cneoformans/gatti Not Reported Not Detected (NotDetected); Cparapsilosis Not Reported Not Detected (NotDetected); E cloacae compx Not Reported Not Detected (NotDetected); Efaecalis Not Reported Not Detected (NotDetected); Efaecium Not Reported Not Detected (NotDetected); Enterobacterales Not Reported Not Detected (NotDetected); Escherichia coli Not Reported Not Detected (NotDetected); H influenzae Not Reported Not Detected (NotDetected); K aerogenes Not Reported Not Detected (NotDetected); Koxytoca Not Reported Not Detected (NotDetected); Kpneumoniae grp Not Reported Not Detected (NotDetected); Lmonocyt Not Reported Not Detected (NotDetected); N meningitidis Not Reported Not Detected (NotDetected); P aeruginosa Not Reported Not Detected (NotDetected); Proteus spp Not Reported Not Detected (NotDetected); Salmonella spp Not Reported Not Detected (NotDetected); Smarcescens Not Reported Not Detected (NotDetected); Staph lugdunensis Not Reported Not Detected (NotDetected); Staph spp. Not Reported DETECTED (NotDetected); Staphaureus Not Reported DETECTED (NotDetected); Staphepi Not Reported Not Detected (NotDetected); Staphylococcus spp. DETECTED (NotDetected); Stenmaltophilia Not Reported Not Detected (NotDetected); Strep agal(GrpB) Not Reported Not Detected (NotDetected); Strep pneum Not Reported Not Detected (NotDetected); Strep pyog (GrpA) Not Reported Not Detected (NotDetected); Strep spp Not Reported Not Detected (NotDetected); mecAC+MREJ Resistant Gene MRSA Not Detected (NotDetected)
[2024-03-09] MEDS ORDERED: VANCOMYCIN CONSULT ACTIVE PRN (09:57)
[2024-03-09] MEDS ORDERED: VANCOMYCIN HCL 2,500 MG in SODIUM CHLORIDE 0.9% 500 ML IV ONE (11:00)
[2024-03-09] MEDS: ceFAZolin 2000MG 2,000 MG/15 ML SYR IV STA (12:14)
[2024-03-09] MEDS ORDERED: cefTRIAXone SODIUM 2,000 MG in DEXTROSE 5 % MINI-B 50 ML IV SCH (16:00)
--- NOTE | 2024-03-09 17:13 | Infectious Disease Consult ---
Date of Consultation March 09, 2024 Assessment & Plan (1) Prostatitis: Plan #MSSA Bacteremia #Prostatitis with Cystitis #cooper 58 yo M with h/o enlarged prostate, urinary retention with cooper catheter, sen in ER on 02/04/24 for difficulty voiding, cooper placed Ucx pos for kleb pneumon iae treated with cephalexin, patient was seen by Urology in interim for follow. Patient began having sudden chills on day of admission on 03/08 and admitted with concerns for sepsis. ID consulted for Staph aureus bacteremia. He was seen in Urology on 02/26 and per updated addendum there was concern for asymmetry of seminal vesicles as well as enlarged prostate. Planned for surgery on 03/20, possible radical prostatectomy. On admission, WBC 12 now increased to 15, hgb 12, plt 110, Cr 0.8. AST/ALT normal, apho 109. UA >50 wbcs, >20 rbcs, neg nit. 03/08 blood cx GPC, BCID is positive for Staph aureus, MRSA not detected. Ucx GPC as well. CT A/P showed severe cystitis, prostatomegaly. Infiltration around prostate and seminal vesicles, prostatitis is not excluded ID consulted today. RECOMMEND -Please check blood cultures q24-48 hours -Ok with Cefazolin 2G IV TID -2DE please -This weekend monitor for seeding of any joints, brain, skin, etc I d/w Dr. Juarez, typically beta lactams dont have best penetration but it is increased during infection and better absorbed into prostate ID will see patient on Tuesday (Dr. Kamara) But please page OTW w questions Daniela Muse MD Infectious Diseases Consultation Information This patient recommendation is based on a telemedicine consult request which was completed asynchronously through chart review and information provided by the primary physician. The patient was not seen or examined today. The evaluation is consultative in nature and all patient care and treatment decisions can either be accepted or rejected by the patient's primary hospital-based treating physician using their own independent medical judgment for their patient. [employer] contact information: Please call [facility] Call Center [phone]. (Phone Number For Physician Use Only) Time Spent Reviewing Chart: 21 - 30 minutes History of Present Illness Reason for Consultation: MSSA Prostatitis Requesting Physician: Dr. Juarez Attending Physician: Leonor Juarez MD History of Present Illness 58 yo M with h/o enlarged prostate, urinary retention with cooper catheter, sen in ER on 02/04/24 for difficulty voiding, cooper placed Ucx pos for kleb pneumoniae treated with cephalexin, patient was seen by Urology in interim for follow. Patient began having sudden chills on day of admission on 03/08 and admitted with concerns for sepsis. ID consulted for Staph aureus bacteremia. He was seen in Urology on 02/26 and per updated addendum there was concern for asymmetry of seminal vesicles as well as enlarged prostate. Planned for surgery on 03/20, possible radical prostatectomy. On admission, WBC 12 now increased to 15, hgb 12, plt 110, Cr 0.8. AST/ALT normal, apho 109. UA >50 wbcs, >20 rbcs, neg nit. 03/08 blood cx GPC, BCID is positive for Staph aureus, MRSA not detected. Ucx GPC as well. CT A/P showed severe cystitis, prostatomegaly. Infiltration around prostate and seminal vesicles, prostatitis is not excluded ID consulted today. Allergies Allergy/AdvReac Type Severity Reaction Status Date / Time pollen extracts Allergy Unknown Verified 03/08/24 20:37 SEASONAL Allergy Intermediate ITCHY EYES Uncoded 03/08/24 14:47 , CONGESTION Home Medications Medication Instructions Recorded Confirmed Type coQ10 (ubiquinol) 100 mg capsule 0 mg PO QAM 02/04/24 03/08/24 History amlodipine 5 mg tablet (Norvasc) 5 mg PO QAM 03/08/24 03/08/24 History cholecalciferol (vitamin D3) 10 0 unit PO QAM 03/08/24 03/08/24 History mcg (400 unit) tablet (Vitamin D3) oxybutynin chloride 5 mg tablet 5 mg PO Q8H PRN bladder spasms #30 03/08/24 03/08/24 Rx tabs tamsulosin 0.4 mg capsule 0.4 mg PO QAM 03/08/24 03/08/24 History Patient History Medical History TOMY (obstructive sleep apnea) Hypertension BPH loc w urin obs/LUTS Social History Smoking Status: Former smoker Tobacco Type: Cigars Do You Dip or Chew Tobacco: No; Hx Alcohol Use: Yes Alcohol type: beer and wine Hx Substance Use: No Preferred Language: Canadian Communication Ability: Effective Foil Wrapper Required: No Beliefs That Will Affect Care: None Current Living Situation: Significant Other Other Information That Helps Us Care for You: No Feels Safe at Home: Yes Safety Concerns: Feels Safe At This Time Assistive Devices: CPAP Results & Data Vital Signs (Past 12 Hours) Vital Signs Temp Pulse Resp BP Pulse Ox O2 Del Method 03/09/24 15:33 37.0 C 77 18 134/77 99 Room Air 03/09/24 11:00 37.0 C 75 18 119/75 95 Room Air 03/09/24 07:06 36.8 C 72 18 119/71 97 Room Air Laboratory Results Laboratory Results - last 48 hr 03/08/24 03/08/24 03/08/24 12:15 15:04 15:05 WBC 12.02 H RBC 4.93 Hgb 14.4 Hct 42.4 MCV 86.0 MCH 29.2 MCHC 34.0 RDW Std Deviation 38.4 RDW Coeff of Rojas 12.3 Plt Count 116 L MPV 12.1 Immature Gran % (Auto) 0.4 Neut % (Auto) 87.4 Lymph % (Auto) 6.2 [place] % (Auto) 5.7 Eos % (Auto) 0.2 Baso % (Auto) 0.1 Neut # (Auto) 10.52 H Lymph # (Auto) 0.74 L [place] # (Auto) 0.68 H Eos # (Auto) 0.02 Baso # (Auto) 0.01 Immature Gran # (Auto) 0.05 ESR 10 Sodium 137 Potassium 3.7 Chloride 104 Carbon Dioxide 26 Anion Gap 7 BUN 15 Creatinine 0.80 Est Cr Clr Drug Dosing 126.4 Est GFR ( Amer) 112.5 Est GFR (Non-Af Amer) 97.1 BUN/Creatinine Ratio 18.8 Glucose 139 H Lactate 1.5 Calcium 9.6 Total Bilirubin 1.2 H AST 23 ALT 26 Alkaline Phosphatase 109 H C-Reactive Protein 0.64 H Total Protein 7.6 Albumin 4.8 Globulin 2.8 Albumin/Globulin Ratio 1.7 Lipase 15 Procalcitonin Cancelled Urine Color Urine Appearance Urine pH Ur Specific Ellis Urine Protein Urine Glucose (UA) Urine Ketones Urine Blood Urine Nitrite Urine Bilirubin Urine Urobilinogen Ur Leukocyte Esterase Urine WBC (Auto) Urine RBC (Auto) U Hyaline Cast (Auto) U Epithel Cells (Auto) Urine Bacteria (Auto) Adenovirus (PCR) Anaplasma Smear See Comment Babesia Smear See Comment B. pertussis DNA (PCR) B.parapertussis DNA PCR Lyme Disease Screen Negative C. pneumoniae DNA (PCR) Coronavirus OC43 (PCR) Coronavirus HKU1 (PCR) Coronavirus 229E (PCR) SARS-CoV-2 (PCR) Coronavirus NL63 (PCR) Human Metapneumovir PCR Influenza Type A (PCR) Influenza Type B (PCR) M. pneumoniae (PCR) Parainfluenza 1 (PCR) Parainfluenza 2 (PCR) Parainfluenza 3 (PCR) Parainfluenza 4 (PCR) RSV (PCR) Entero/Rhino (PCR) Staphylococcus sp PCR DETECTED A Staph aureus (PCR) DETECTED A mecA/C & MREJ Resist Gene MRSA Not Detected Bld Cult ID Panel PCR See PCR Comment 03/08/24 03/08/24 03/08/24 15:49 17:49 19:05 WBC RBC Hgb Hct MCV MCH MCHC RDW Std Deviation RDW Coeff of Rojas Plt Count MPV Immature Gran % (Auto) Neut % (Auto) Lymph % (Auto) [place] % (Auto) Eos % (Auto) Baso % (Auto) Neut # (Auto) Lymph # (Auto) [place] # (Auto) Eos # (Auto) Baso # (Auto) Immature Gran # (Auto) ESR Sodium Potassium Chloride Carbon Dioxide Anion Gap BUN Creatinine Est Cr Clr Drug Dosing Est GFR ( Amer) Est GFR (Non-Af Amer) BUN/Creatinine Ratio Glucose Lactate Calcium Total Bilirubin AST ALT Alkaline Phosphatase C-Reactive Protein Total Protein Albumin Globulin Albumin/Globulin Ratio Lipase Procalcitonin 1.00 H Urine Color Yellow Yellow Urine Appearance Clear Clear Urine pH 8.5 H 7.5 Ur Specific Ellis 1.013 1.021 Urine Protein Trace H Negative Urine Glucose (UA) Negative Negative Urine Ketones 1+ H Negative Urine Blood 3+ H 3+ H Urine Nitrite Positive A Negative Urine Bilirubin Negative Negative Urine Urobilinogen Negative Negative Ur Leukocyte Esterase 3+ H 2+ H Urine WBC (Auto) >50 H >50 H Urine RBC (Auto) >20 H >20 H U Hyaline Cast (Auto) 0-2 0-2 U Epithel Cells (Auto) 0-2 0-2 Urine Bacteria (Auto) 1+ H None Seen Adenovirus (PCR) Not Detected Anaplasma Smear Babesia Smear B. pertussis DNA (PCR) Not Detected B.parapertussis DNA PCR Not Detected Lyme Disease Screen C. pneumoniae DNA (PCR) Not Detected Coronavirus OC43 (PCR) Not Detected Coronavirus HKU1 (PCR) Not Detected Coronavirus 229E (PCR) Not Detected SARS-CoV-2 (PCR) Not Detected Coronavirus NL63 (PCR) Not Detected Human Metapneumovir PCR Not Detected Influenza Type A (PCR) Not Detected Influenza Type B (PCR) Not Detected M. pneumoniae (PCR) Not Detected Parainfluenza 1 (PCR) Not Detected Parainfluenza 2 (PCR) Not Detected Parainfluenza 3 (PCR) Not Detected Parainfluenza 4 (PCR) Not Detected RSV (PCR) Not Detected Entero/Rhino (PCR) Not Detected Staphylococcus sp PCR Staph aureus (PCR) mecA/C & MREJ Resist Gene Bld Cult ID Panel PCR 03/08/24 03/09/24 Unknown 05:38 WBC 15.93 H RBC 4.19 L Hgb 12.5 L Hct 35.7 L MCV 85.2 MCH 29.8 MCHC 35.0 RDW Std Deviation 38.8 RDW Coeff of Rojas 12.6 Plt Count 110 L MPV 12.4 Immature Gran % (Auto) 0.4 Neut % (Auto) 78.3 Lymph % (Auto) 12.9 [place] % (Auto) 7.8 Eos % (Auto) 0.4 Baso % (Auto) 0.2 Neut # (Auto) 12.48 H Lymph # (Auto) 2.05 [place] # (Auto) 1.25 H Eos # (Auto) 0.06 Baso # (Auto) 0.03 Immature Gran # (Auto) 0.06 ESR Sodium 138 Potassium 3.6 Chloride 108 H Carbon Dioxide 24 Anion Gap 6 BUN 14 Creatinine 0.90 Est Cr Clr Drug Dosing 112.2 Est GFR ( Amer) 107.2 Est GFR (Non-Af Amer) 92.5 BUN/Creatinine Ratio 15.6 Glucose 107 H Lactate Calcium 8.8 Total Bilirubin AST ALT Alkaline Phosphatase C-Reactive Protein Total Protein Albumin Globulin Albumin/Globulin Ratio Lipase Procalcitonin Urine Color Urine Appearance Urine pH Ur Specific Ellis Urine Protein Urine Glucose (UA) Urine Ketones Urine Blood Urine Nitrite Urine Bilirubin Urine Urobilinogen Ur Leukocyte Esterase Urine WBC (Auto) Urine RBC (Auto) U Hyaline Cast (Auto) U Epithel Cells (Auto) Urine Bacteria (Auto) Adenovirus (PCR) Anaplasma Smear Cancelled Babesia Smear Cancelled B. pertussis DNA (PCR) B.parapertussis DNA PCR Lyme Disease Screen C. pneumoniae DNA (PCR) Coronavirus OC43 (PCR) Coronavirus HKU1 (PCR) Coronavirus 229E (PCR) SARS-CoV-2 (PCR) Coronavirus NL63 (PCR) Human Metapneumovir PCR Influenza Type A (PCR) Influenza Type B (PCR) M. pneumoniae (PCR) Parainfluenza 1 (PCR) Parainfluenza 2 (PCR) Parainfluenza 3 (PCR) Parainfluenza 4 (PCR) RSV (PCR) Entero/Rhino (PCR) Staphylococcus sp PCR Staph aureus (PCR) mecA/C & MREJ Resist Gene Bld Cult ID Panel PCR Medications Administered Current Inpatient Medications Acetaminophen (Acetaminophen 325 Mg Tab) 650 mg PO Q4H PRN PRN Reason: Pain or fever Stop: 04/07/24 20:30 Last Admin: 03/09/24 04:16 Dose: 650 mg Amlodipine Besylate (Amlodipine Besylate 5 Mg Tab) 5 mg PO QAM [facility] Stop: 04/08/24 08:59 Last Admin: 03/09/24 08:59 Dose: 5 mg Enoxaparin Sodium (Enoxaparin Inj 40 Mg/0.4 Ml Syr) 40 mg SQ QAM [facility] Stop: 04/08/24 08:59 Last Admin: 03/09/24 08:58 Dose: 40 mg Cefazolin Sodium (Ancef 2000mg) 2,000 mg in 15 mls @ 3.75 mls/min IV Q8H [facility] Stop: 03/23/24 19:59 Ketorolac Tromethamine (Ketorolac Tromethamine 15 Mg/Ml Vial) 15 mg IV Q6H PRN PRN Reason: Pain Stop: 03/13/24 20:30 Ondansetron HCl (Ondansetron Inj 2 Mg/Ml 2 Ml Vial) 4 mg IV Q6H PRN PRN Reason: Nausea Stop: 04/07/24 20:30 Oxybutynin Chloride (Oxybutynin Chloride 5 Mg Tab) 5 mg PO Q8H PRN PRN Reason: bladder spasms Stop: 04/07/24 20:30 Last Admin: 03/09/24 12:17 Dose: 5 mg Tamsulosin HCl (Tamsulosin Hcl 0.4 Mg Cap) 0.4 mg PO QAM [facility] Stop: 04/08/24 08:59 Last Admin: 03/09/24 08:59 Dose: 0.4 mg (1) Prostatitis Prostatitis type: acute Qualified Code(s): N41.0 - Acute prostatitis
--- NOTE | 2024-03-09 20:52 | XCELERA ---
[id number]
[2024-03-09] MEDS: ceFAZolin 2000MG 2,000 MG/15 ML SYR IV SCH (21:33)
--- NOTE | 2024-03-10 05:56 | Electrocardiogram Report ---
Test Reason : Blood Pressure : / mmHG Vent. Rate : 084 BPM Atrial Rate : 084 BPM P-R Int : 220 ms QRS Dur : 106 ms QT Int : 392 ms P-R-T Axes : 053 -23 037 degrees QTc Int : 463 ms Sinus rhythm with 1st degree A-V block possible Inferior infarct (cited on or before 08-MAR-2024) Abnormal ECG When compared with ECG of 27-MAY-2009 19:46, AL interval has increased Confirmed by Sebas Pedroza ([id number]) on 03/10/2024 5:55:45 AM Referred By: REFERRED SELF Confirmed By:Yann Pedroza
[2024-03-10 06:26] LABS: Hematocrit (blood only) 36.4 % (42.0-52.0); Hemoglobin 12.3 g/dl (14.0-18.0); Mean Corpuscular Hemoglobin 29.1 pg (25.0-34.0); Mean Corpuscular Hgb Conc 33.8 g/dL (32.0-36.0); Mean Corpuscular Volume 86.1 fL (80.0-100.0); Mean Platelet Volume 12.3 fL (9.4-12.4); Platelet Count 103 K/uL (130-400); RDW Coefficient of Variation 12.4 % (11.5-14.5); RDW Standard Deviation 38.9 fL (36.4-46.3); Red Blood Count 4.23 M/uL (4.70-6.10); White Blood Count 9.06 K/ul (4.8-10.8)
[2024-03-10 06:30] LABS: BUN Creatinine Ratio 15.6 (10-20); Calcium 8.5 mg/dl (8.6-10.3); Creatinine Clr Calc Pharmacy 105.7 ml/min; Est GFR (African American) 99.2 ml/min; Est GFR (Non-African American) 85.6 ml/min; Potassium 3.5 mmol/L (3.5-5.1)
--- NOTE | 2024-03-10 15:54 | Hospitalist Progress Note ---
Date of Service March 10, 2024 Assessment & Plan (1) Sepsis: Plan: 58 y/o man with abnormal prostate and cooper catheter admitted with sepsis. Admitting labs and CT highly suspicious for UTI and prostatitis. Blood culture prelim with MSSA by molecular assay. WBC normalized today no fever, still with thrombocytopenia MSSA bacteremia from urinary source -consulted ID - recommended continuing cefazolin -TTE with normal EF, prolapsing posterior mitral valve leaflet causing mild MR, no vegetations remarked on. Discuss with cardiology and ID -staph aureus also in urine cultures (the culture from 17:49 on 03/08 is the specimen taken AFTER the cooper was exchanged) -repeat blood cultures today, for clearance (2) Prostatitis: Plan: Acute prostatitis due to cooper catheter [initially inserted 02/04/24 for acute urinary retention] PSA 6 on 02/20, increased to 7.5 on admission. Markedly enlarged and heterogeneous prostate on CT with inflammation around prostate and seminal vesicles. Markedly thickened bladder wall with surrounding inflammation with foci of intraluminal gas -notified his urologist Dr. Zhu of clinical picture. Per his last note needs eval for possible prostate cancer, outpatient MRI was planned then possible surgery 03/20. -see above (3) Newly recognized murmur: Plan: caused by MVP and mild MR - see above (4) BPH loc w urin obs/LUTS: Plan: Acute urine retention on 02/03, cooper catheter since that time. Last catheter change 03/08 in ED (5) Hypertension: Plan: Continue amlodipine (6) TOMY (obstructive sleep apnea): Plan: CPAP HS Plan VTE Prophylaxis - Lovenox 40mg SQ daily Can transfer to medical unit Admission and Anticipated Discharge Date Admission Date: March 08, 2024 Subjective Feeling better - bladder spasms much less, no fever. Feels pretty well, doing laps in hallway Physical Exam Physical Exam: PHYSICAL EXAMINATION Last 24h vital signs reviewed, see documentation in flowsheet General: comfortable appearing, no distress HEENT: Normocephalic, atraumatic, pupils round and equal, sclerae anicteric, no conjunctival injection, moist mucus membranes Lungs: Normal respiratory effort. Clear to auscultation bilaterally. No RRW Heart: def Abdomen: nondistended. : cooper catheter yellow urine Extremities: Warm, dry, well-perfused. No extremity edema. walks well Neuro: Alert and oriented x 4, face symmetric, moves 4 extremities well Psych: Normal affect and behavior Results & Data Results & Data Vital Signs (Past 12 Hours) Vital Signs Temp Pulse Resp BP Pulse Ox O2 Del Method 03/10/24 12:10 37.1 C 77 17 144/92 H 99 Room Air 03/10/24 08:15 37.2 C 70 18 120/74 98 Room Air 03/10/24 04:26 36.8 C 57 L 18 146/77 H 98 CPAP PG Care Time/CCT Total # of Minutes Spent Total Time Spent with Patient: Total time spent is greater than 50% in coordination of care (as documented) at patient's floor/unit and/or counseling patient: Coding Level of Care Code 95801 SUB INP/OBS CARE 2/35MIN Diagnoses Sepsis A41.9 Prostatitis N41.9 Newly recognized murmur R01.1 BPH loc w urin obs/LUTS N40.1 Hypertension I10 Hypertension type: primary hypertension TOMY (obstructive sleep apnea) G47.33 (5) Hypertension Hypertension type: primary hypertension Qualified Code(s): I10 - Essential (primary) hypertension
[2024-03-11 06:18] LABS: Hematocrit (blood only) 40.1 % (42.0-52.0); Hemoglobin 13.4 g/dl (14.0-18.0); Mean Corpuscular Hemoglobin 28.9 pg (25.0-34.0); Mean Corpuscular Hgb Conc 33.4 g/dL (32.0-36.0); Mean Corpuscular Volume 86.6 fL (80.0-100.0); Mean Platelet Volume 11.9 fL (9.4-12.4); Platelet Count 124 K/uL (130-400); RDW Coefficient of Variation 12.4 % (11.5-14.5); Red Blood Count 4.63 M/uL (4.70-6.10); White Blood Count 6.69 K/ul (4.8-10.8)
[2024-03-11 06:36] LABS: BUN Creatinine Ratio 15.7 (10-20); Calcium 8.9 mg/dl (8.6-10.3); Creatinine Clr Calc Pharmacy 122.2 ml/min; Est GFR (African American) 110.8 ml/min; Est GFR (Non-African American) 95.6 ml/min; Potassium 3.5 mmol/L (3.5-5.1)
--- NOTE | 2024-03-11 17:16 | Hospitalist Progress Note ---
Date of Service March 11, 2024 Assessment & Plan (1) Sepsis: Plan: 58 y/o man with abnormal prostate and cooper catheter admitted with sepsis. Admitting labs and CT highly suspicious for UTI and prostatitis. Blood culture prelim with MSSA by molecular assay. WBC normalized no fever, thrombocytopenia resolving MSSA bacteremia from urinary source -consulted ID - recommended continuing cefazolin -TTE with normal EF, prolapsing posterior mitral valve leaflet causing mild MR, no vegetations remarked on. Discuss with cardiology and ID -staph aureus also in urine cultures (the culture from 17:49 on 03/08 is the specimen taken AFTER the cooper was exchanged) -admission cultures with 11/24 bottles MSSA -repeat blood cultures 03/10, for clearance -ngtd -care coord consult for anticipated home infusion -IV access depending on total duration of ABX and after blood cx clear (2) Prostatitis: Plan: Acute prostatitis due to cooper catheter [initially inserted 02/04/24 for acute urinary retention] PSA 6 on 02/20, increased to 7.5 on admission. Markedly enlarged and heterogeneous prostate on CT with inflammation around prostate and seminal vesicles. Markedly thickened bladder wall with surrounding inflammation with foci of intraluminal gas -notified his urologist Dr. Zhu of clinical picture. Per his last note needs eval for possible prostate cancer, outpatient MRI was planned then possible surgery 03/20. -see above (3) Newly recognized murmur: Plan: caused by MVP and mild MR - see above (4) BPH loc w urin obs/LUTS: Plan: Acute urine retention on 02/03, cooper catheter since that time. Last catheter change 03/08 in ED (5) Hypertension: Plan: Continue amlodipine (6) TOMY (obstructive sleep apnea): Plan: CPAP HS Plan VTE Prophylaxis - Lovenox 40mg SQ daily Updated his at bedside 03/10, 03/11 Admission and Anticipated Discharge Date Admission Date: March 08, 2024 Subjective doing well, bladder spasms resolving wants to get home and be able to work Physical Exam 2 Physical Exam: PHYSICAL EXAMINATION Last 24h vital signs reviewed, see documentation in flowsheet General: comfortable appearing, no distress HEENT: Normocephalic, atraumatic, pupils round and equal, sclerae anicteric, no conjunctival injection, moist mucus membranes Lungs: Normal respiratory effort. Clear to auscultation bilaterally. No RRW Heart: reg, systolic murmur at apex Abdomen: nondistended. : cooper catheter yellow urine Extremities: Warm, dry, well-perfused. No extremity edema. Neuro: Alert and oriented x 4, face symmetric, moves 4 extremities well Psych: Normal affect and behavior Results & Data Results & Data Vital Signs (Past 12 Hours) Vital Signs Temp Pulse Resp BP Pulse Ox O2 Del Method 03/11/24 15:24 36.7 C 73 16 129/76 98 Room Air 03/11/24 07:29 36.8 C 66 16 132/79 98 CPAP Laboratory Results 03/11/24 05:26 03/11/24 05:26 PG Care Time/CCT Total # of Minutes Spent Total Time Spent with Patient: Total time spent is greater than 50% in coordination of care (as documented) at patient's floor/unit and/or counseling patient: Coding Level of Care Code 43114 SUB INP/OBS CARE 2/35MIN Diagnoses Sepsis A41.9 Prostatitis N41.9 Newly recognized murmur R01.1 BPH loc w urin obs/LUTS N40.1 Hypertension I10 Hypertension type: primary hypertension TOMY (obstructive sleep apnea) G47.33 (5) Hypertension Hypertension type: primary hypertension Qualified Code(s): I10 - Essential (primary) hypertension
[2024-03-12 08:03] LABS: Creatinine Clr Calc Pharmacy 137.1 ml/min; Est GFR (African American) 116.2 ml/min; Est GFR (Non-African American) 100.3 ml/min
--- NOTE | 2024-03-12 11:02 | Infectious Disease Progress Nt ---
Date of Service March 12, 2024 Assessment & Plan (1) Prostatitis: Plan 58yo M with h/o enlarged prostate, urinary retention with cooper catheter, seen in ER on 02/04/24 for difficulty voiding s/p cooper with Ucx pos for K pneumoniae and tx with cephalexin, who presented on 03/08 with acute onset of chills. Seen by urology on 02/26 at which time c/f asymmetry of seminal vesicles as well as enlarged prostate and planned for surgery on 03/20, possible radical prostatectomy. On admission, he was febrile with stable BPs. WBC 12 >> 15, hgb 12, plt 110, Cr 0.8. AST/ALT normal, Alk phos 109. CRP 0.64, ESR 10. UA >50 wbcs, >20 rbcs, neg nit. UCX and BCX with MSSA. CT A/P showed severe cystitis, prostatomegaly, infiltration around prostate and seminal vesicles, prostatitis is not excluded. ID consulted 03/09 for S aureus bacteremia. TTE with MVP with MR, no vegetation reported. Patient with low grade MSSA bacteremia that cleared relatively quickly after IV abx initiation. No hardware, back pain, joint involvement. Source possibly related to the recent instrumentation (ie cooper) and prostatitis. No vegetations noted on TTE (good images per cardiology). No prostatic abscess on CT. For his bacteremia, will plan for at least 2 weeks of IV antibiotics followed by PO regimen (ie keflex 500mg PO qid) to complete therapy of 4-6 weeks for prostatitis. Can stop at 4 weeks if clinically improved and normalized CRP. # MSSA Bacteremia # Prostatitis with Cystitis # Indwelling cooper - continue with Cefazolin 2G IV q8h - will plan for at least 2 weeks of IV abx with cefazolin (start 03/10 if BCx remain neg at 48h, eot 03/23) followed by keflex 500mg PO 4 times daily for an additional 2-4 weeks (total treatment course for prostatitis being 4-6wks, 4wks on 04/06, 6wks on 04/20) -if clinically improved with normalized CRP, can stop at 4 week lucina (04/06) - please monitor weekly CBC w diff, CMP and CRP while on IV abx - please ensure outpatient ID follow up ID will discontinue active follow up at this time. Please do not hesitate to reconsult the Infectious Diseases service as needed. Loida Kamara MD [facility], Division of Infectious Diseases [facility]: [phone] Admission and Anticipated Discharge Date Admission Date: March 08, 2024 Subjective Subsequent visit was provided via telemedicine using two-way real-time interactive telecommunication between the patient and the telemedicine provider. For the duration of the visit, the provider was performing the assessment from a different facility than the patient. This includesuse of bluetooth steth oscope forauscultationperformed by the telepresenter that the telemedicine provider can hear if described in the physical exam. [employer] contact information: Please call [facility] Call Center . (Phone Number For Physician Use Only) After establishing a telemedicine visit, patient was: Patient was verified with two unique identifiers, Patient/authorized rep acknowledged consent and understanding and Gave permission to continue telehealth session Time Spent with Patient: Subsequent => 55 min Patient reports feeling well. Says his only symptoms were intense bladder spasms, which have resolved. No back pain or joint pains, no hardware aside from dental implant. Physical Exam Physical Exam: General: Awake, alert, no acute distress HEENT: NC/AT, EOMI, mmm Neck: supple Lungs: respirations non-labored Heart: nl peripheral perfusion Abdomen: soft, NT/ND Ext: no LE edema Results & Data Vital Signs (Past 12 Hours) Vital Signs Temp Pulse Resp BP Pulse Ox O2 Del Method FiO2 03/12/24 07:09 37.1 C 73 16 146/85 H 97 Room Air 03/12/24 02:39 14 21 (1) Prostatitis Prostatitis type: acute Qualified Code(s): N41.0 - Acute prostatitis
--- NOTE | 2024-03-12 18:21 | Hospitalist Progress Note ---
Date of Service March 12, 2024 Assessment & Plan (1) Sepsis: Plan: 58 y/o man with abnormal prostate and cooper catheter admitted with sepsis due to MSSA bacteremia related to catheter-associated UTI and prostatitis. WBC normalized no fever, thrombocytopenia resolving MSSA bacteremia from urinary source -consulted ID - recommended continuing cefazolin -staph aureus also in urine cultures (the culture from 17:49 on 03/08 is the specimen taken AFTER the cooper was exchanged) -admission cultures with 1/4 bottles MSSA -repeat blood cultures 03/10, for clearance -ngtd at 48h -TTE with normal EF, prolapsing posterior mitral valve leaflet causing mild MR, no vegetations remarked on. Discussed with cardiology - very good study and images, no evidence of vegetations, did not recommend TIM, and discussed with ID Dr. Kamara who agreed - did not feel TIM necessary with good images, low grade bacteremia that cleared quickly of urinary source -care coord consult for anticipated home infusion - discussed today - can discharge tomorrow after 2pm dose of cefazolin and home infusion will meet him at home to train/set up -IV access - ordered US guided PIV Per ID recs today: "- will plan for at least 2 weeks of IV abx with cefazolin (start 03/10 if BCx remain neg at 48h, eot 03/23) followed by keflex 500mg PO 4 times daily for an additional 2-4 weeks (total treatment course for prostatitis being 4-6wks, 4wks on 04/06, 6wks on 04/20) -if clinically improved with normalized CRP, can stop at 4 week lucina (04/06) - please monitor weekly CBC w diff, CMP and CRP while on IV abx - please ensure outpatient ID follow up" (2) Prostatitis: Plan: Acute prostatitis due to cooper catheter [initially inserted 02/04/24 for acute urinary retention] PSA 6 on 02/20, increased to 7.5 on admission. Markedly enlarged and heterogeneous prostate on CT with inflammation around prostate and seminal vesicles. Markedly thickened bladder wall with surrounding inflammation with foci of intraluminal gas -notified his urologist Dr. Zhu of clinical picture. Per his last note needs eval for possible prostate cancer, outpatient MRI was planned then possible surgery 03/20. Sent update to him 03/12. -see above (3) Newly recognized murmur: Plan: caused by MVP and mild MR - see above (4) BPH loc w urin obs/LUTS: Plan: Acute urine retention on 02/03, cooper catheter since that time. Last catheter change 03/08 in ED (5) Hypertension: Plan: Continue amlodipine (6) TOMY (obstructive sleep apnea): Plan: CPAP HS Plan VTE Prophylaxis - Lovenox 40mg SQ daily Updated his at bedside 03/10, 03/11 Admission and Anticipated Discharge Date Admission Date: March 08, 2024 Subjective Feeling well, no further bladder spasms Physical Exam 2 Physical Exam: PHYSICAL EXAMINATION Last 24h vital signs reviewed, see documentation in flowsheet Exam unchanged 03/12: General: comfortable appearing, no distress HEENT: Normocephalic, atraumatic, pupils round and equal, sclerae anicteric, no conjunctival injection, moist mucus membranes Lungs: Normal respiratory effort. Heart: deferred Abdomen: nondistended. : cooper catheter yellow urine Extremities: Warm, dry, well-perfused. No extremity edema. Neuro: Alert and oriented x 4, face symmetric, moves 4 extremities well Psych: Normal affect and behavior Results & Data Results & Data Vital Signs (Past 12 Hours) Vital Signs Temp Pulse Resp BP Pulse Ox O2 Del Method 03/12/24 14:23 37.1 C 71 16 126/90 99 Room Air 03/12/24 07:09 37.1 C 73 16 146/85 H 97 Room Air Laboratory Results 03/11/24 05:26 03/12/24 07:17 CRP 0.64 PG Care Time/CCT Total # of Minutes Spent Total Time Spent with Patient: I personally spent: 50 minutes today on clinical care activities including: reviewing chart notes and vital signs reviewing labs discussion with informatics consultant(s)-cardiology, ID, contacting urologist discussion with hearing healthcare practitioner Writing home infusion orders examining and counseling the patient writing orders documentation Coding Level of Care Code 85548 SUB INP/OBS CARE 3/50MIN Diagnoses Sepsis A41.9 Prostatitis N41.9 Newly recognized murmur R01.1 BPH loc w urin obs/LUTS N40.1 Hypertension I10 Hypertension type: primary hypertension TOMY (obstructive sleep apnea) G47.33 (5) Hypertension Hypertension type: primary hypertension Qualified Code(s): I10 - Essential (primary) hypertension
[2024-03-13 14:08] LABS: Ehrlichia chaff DNA Bld Negative (Negative)
--- NOTE | 2024-03-13 15:07 | Discharge Summary ---
Date of Service date of admission - March 08, 2024 date of discharge - March 13, 2024 Admission HPI Per Admitting Provider Jose Henning is a 58-year-old male who presents to the ER with chills that started today. He has a significant history of urinary retention which occurred on February 03 reportedly out of the blue although he may have had some mild problems with his urinary stream prior to this. Cooper catheter was inserted and UA was non infected appearing. He developed bladder spasms and returned to the ER on 02/10 when his UA appeared infected and he was started on Keflex for what was subsequently Klebsiella cultured. He was seen by urology on 02/13 and passed trial without cooper but subsequently returned to the ER on 02/15 back in urine retention and cooper catheter was replaced. For the last few days he has developed bladder spasms again and today started having chills. He called Dr Zhu office and came to the lab to give a urine sample when they took his temperature it was 103.5 Fahrenheit therefore he was advised to go to the ER. Initial urine analysis/culture was taken from his old cooper catheter however since his cooper catheter has been exchanged with new sample taken from his new cooper. He denies any back/flank pain, no testicular pain. Discharge Data Allergies Allergy/AdvReac Type Severity Reaction Status Date / Time pollen extracts Allergy Unknown Verified 03/08/24 20:37 SEASONAL Allergy Intermediate ITCHY EYES Uncoded 03/08/24 14:47 , CONGESTION Consultations 03/08/24 17:23 ED Decision to Admit Stat 03/09/24 11:39 Consult Infectious Diseases Stat Ordered Studies 03/08/24 15:00 CT abd pelvis IV con only Stat Hospital Course (1) Sepsis: 58 y/o man with abnormal prostate and cooper catheter admitted with sepsis due to MSSA bacteremia related to catheter-associated UTI and prostatitis. WBC normalized no fever, thrombocytopenia resolving MSSA bacteremia from urinary source -consulted ID - recommended continuing cefazolin -staph aureus also in urine cultures (the culture from 17:49 on 03/08 is the specimen taken AFTER the cooper was exchanged) -admission cultures with 1/4 bottles MSSA -repeat blood cultures 03/10, for clearance -ngtd at 48h -TTE with normal EF, prolapsing posterior mitral valve leaflet causing mild MR, no vegetations remarked on. Discussed with cardiology - very good study and images, no evidence of vegetations, did not recommend TIM, and discussed with ID Dr. Kamara who agreed - did not feel TIM necessary with good images, low grade bacteremia that cleared quickly of urinary source -care coord consult for anticipated home infusion - discussed today - can discharge tomorrow after 2pm dose of cefazolin and home infusion will meet him at home to train/set up -IV access - ordered US guided PIV Per ID recs today: "- will plan for at least 2 weeks of IV abx with cefazolin (start 03/10 if BCx remain neg at 48h, eot 03/23) followed by keflex 500mg PO 4 times daily for an additional 2-4 weeks (total treatment course for prostatitis being 4-6wks, 4wks on 04/06, 6wks on 04/20) -if clinically improved with normalized CRP, can stop at 4 week lucina (04/06) - please monitor weekly CBC w diff, CMP and CRP while on IV abx - please ensure outpatient ID follow up" (2) Prostatitis: Acute prostatitis due to cooper catheter [initially inserted 02/04/24 for acute urinary retention] PSA 6 on 02/20, increased to 7.5 on admission. Markedly enlarged and heterogeneous prostate on CT with inflammation around prostate and seminal vesicles. Markedly thickened bladder wall with surrounding inflammation with foci of intraluminal gas -notified his urologist Dr. Zhu of clinical picture. Per his last note needs eval for possible prostate cancer, outpatient MRI was planned then possible surgery 03/20. Sent update to him 03/12. -see above (3) Newly recognized murmur: caused by MVP and mild MR - see above (4) BPH loc w urin obs/LUTS: Acute urine retention on 02/03, cooper catheter since that time. Last catheter change 03/08 in ED (5) Hypertension: Continue amlodipine (6) TOMY (obstructive sleep apnea): CPAP HS Plan VTE Prophylaxis - Lovenox 40mg SQ daily Updated his at bedside 03/10, 03/11 [facility] Attestation I certify that this patient is under my care and that I, or a physicians speech correction assistant working with me, had a face to-face encounter that meets the [id number] encounter requirements with this patient. The encounter with the patient was in whole, or in part, for the following medical condition, which is the primary reason for home health care (list medical condition): I certify that, based on my findings, the following services are medically necessary home health services: My clinical findings support the need for the above services because: Further, I certify that my clinical findings support that this patient is homebound (i.e. absences from home require considerable and taxing effort and are for medical reasons or orthodox services or infrequently or of short duration when for other reasons) because: Certification for Home Health Services: Based on the above findings, I certify that this patient is confined to the home and needs intermittent fci care, physical therapy and/or speech therapy or continues to need occupational therapy. The patient is under my care, and I have initiated the establishment of the plan of care. This patient will be followed by a physician who will periodically review the plan of care. Discharge Plan Discharge Items Patient Disposition: Home - Home Health Services Reason For Visit: SEPSIS, PROSTATITIS Discharge Diagnosis: 1. bacteremia (blood stream infection) due to staph aureus 2. urinary tract infection due to staph aureus 3. suspected prostatitis (prostate gland infection) 4. mitral valve prolapse 5. mild mitral regurgitation 6. BPH (benign prostatic hypertrophy - enlarged prostate) 7. sleep apnea 8. mildly low platelets - likely due to #1 above - improving; we will be repeating your CBC blood counts in the next 2 weeks Activity: As commented below Activity Comment: gradually increase activities over the next 1-2 weeks Bathing Comment: keep left arm IV covered/dry during showers; no tub baths or swimming Non-emergency contact: Primary Care Provider and Urologist Call non-emergency contact if: you have any medication questions, your symptoms worsen and you have a fever Follow-up/Referrals: Carloz Zhu MD [Physician] - (keep appointment for MRI prostate on 03/29/24. keep appointment for surgery on 04/10/24 as scheduled. if any questions please contact Dr Zhu' office. ) Severiano Mercado DO [Physician] - Karen Lanier DO [Primary Care Provider] - 03/15/24 11:05 am (1 week ) Diet: Regular Addtl Attending Provider Instructions: Mr Henning, Rufino were treated for bacteremia (blood stream infection) and urinary tract infection due to staph aureus bacteria with IV antibiotics. Your CT scan of the abdomen and pelvis showed inflammation around your prostate gland suggestive of prostatitis (see handout). You improved with antibiotics and supportive care. Repeat blood cultures are negative suggesting you have cleared the infection from the blood. Echocardiogram of your heart did not show any infection of the heart valves. The echocardiogram did show you have a condition of your mitral valve called mitral valve prolapse (see handout). The mitral valve prolapse is causing the valve to leak mildly - this is called "mitral regurgitation (also see handout). The mitral valve will need to be followed over time with repeat echocardiograms, etc. Your family doctor can refer you to cardiology in [place] to have this checked periodically. Infectious diseases saw you in consult and recommended a course of IV antibiotics followed by oral antibiotics. Recommendations - 1. IV ancef (cefazolin) 2 grams every 8 hours via your left arm IV with last dose the evening of 03/23/24. 2. Once the IV ancef course is complete you will then switch to oral antibiotics. Your oral antibiotic will be cephalexin 500mg FOUR times daily for at least 2 weeks, possibly up to 4 weeks in duration. Start the oral cephalexin on 03/24/24. 3. The IV in the left arm will be removed once the IV antibiotic course is complete in early March. 4. Keep the IV clean/dry during showers. No tub baths or swimming at this time. 5. Continue your cooper as previous. Your cooper was exchanged in our emergency department on 03/08/24. 6. You will need weekly blood work for the next 2 weeks due to the IV antibiotics. These results will get forwarded to your family doctor. 7. We are going to try and set you up with a local infectious disease physician that comes to [place]. We will contact you with appointment information. The infectious disease physician's name is Dr Severiano Mercado. 8. At this time Dr Zhu from urology recommends keeping your appointment for the MRI of the prostate in March as well as your surgery later that month. Follow-up - see separate section Return to [facility] if - * you have any concerns about your left arm IV * you have any concerns about your cooper catheter * you see large amounts of blood in your catheter * you have fevers over 100 degrees * you have severe bladder or abdominal pain * you develop severe diarrhea * any other concerns It was our pleasure to care for you! -Dr Pappas Pending Studies at Discharge: Yes Studies:: repeat blood cultures, but thus far they remain negative suggesting the blood is sterile again Stand-Alone Forms: My [facility], Smoking Cessation Medications and DC Order Prescriptions: New cefazolin 1 gram recon soln 2 g IV Q8H Qty: 25 0RF cephalexin 500 mg capsule 500 mg PO QID 14 Days Qty: 56 1RF Rx Instructions: start March 24, 2024. Continued oxybutynin chloride 5 mg tablet 5 mg PO Q8H PRN (Reason: bladder spasms) Qty: 30 0RF coQ10 (ubiquinol) 100 mg Capsule 0 mg PO QAM Rx Instructions: patient unsure of strength at this date/time cholecalciferol (vitamin D3) [Vitamin D3] 10 mcg (400 unit) Tablet 0 unit PO QAM Rx Instructions: patient unsure of strength at this date/time amlodipine [Norvasc] 5 mg tablet 5 mg PO QAM tamsulosin 0.4 mg capsule 0.4 mg PO QAM Discharge Orders: Discharge Order (Routine); Ordered 03/13/24 Ordered By: Shadi Rosales/Other Patient Handouts: Bacterial Prostatitis, Mitral Valve Prolapse, Mitral Valve Regurgitation Admission Data Admit Date/Time: 03/08/24 18:16 Attending Provider: Shadi Pappas Admit Provider: Shadi Vega Primary Care Provider: Karen Lanier Other Providers: Daniela Muse; Loida Kamara; Asya,Fax; [place],[facility] Other Interventions: Discharge Summary Assessment (RN) Last Done: 03/13/24 15:18 Coding Diagnoses Sepsis A41.9 Prostatitis N41.9 Newly recognized murmur R01.1 BPH loc w urin obs/LUTS N40.1 Hypertension I10 Hypertension type: primary hypertension TOMY (obstructive sleep apnea) G47.33
[2024-03-14 23:18] LABS: Babesia microti DNA Not Detected (Not Detected); Q Fever IgG, Phase I NEGATIVE; Q Fever Phase I IgM Antibody NEGATIVE; Q Fever Phase II IgG Antibody NEGATIVE; Q Fever Phase II IgM Antibody NEGATIVE; R. typhi IgG Ab NOT DETECTED; R. typhi IgM Ab NOT DETECTED; RMSF IgG Ab NOT DETECTED; RMSF IgM Ab NOT DETECTED
== END 2024-03-13 16:28 | disposition home health service (06) | DRG 698 ==
LOC: ED 11:47 → EDINP 18:16 → SUATTDRO 18:16 → 2E 20:31 → 3N 03-10 17:42

== ENCOUNTER 2025-10-14 10:16 | Inpatient (IN) ==
[2025-10-14] MEDS: PLASMA-LYTE A 1,000 ML IV ONE (10:31)
--- NOTE | 2025-10-14 10:47 | XRay Report ---
XR chest 1V portable CLINICAL HISTORY: Chest pain, nonspecific COMPARISON STUDY: 05/27/2009 FINDINGS: There is mild cardiomegaly without pulmonary vascular congestion. No consolidation or pleur al effusion. No pneumothorax. IMPRESSION: No acute findings. ACT 112: Negative or not required by law. Electronically signed by: Thomas Moyer M.D. 10/14/2025 10:46 AM
[2025-10-14 10:57] LABS: Hematocrit (blood only) 48.7 % (42.0-52.0); Hemoglobin 16.9 g/dL (14.0-18.0); Immature Granulocytes % (auto) 0.3 %; Mean Corpuscular Hemoglobin 29.7 pg (25.0-34.0); Mean Corpuscular Volume 85.6 fL (80.0-100.0); Platelet Count 175 K/uL (130-400); RDW Standard Deviation 38.7 fL (36.4-46.3); Red Blood Count 5.69 M/uL (4.70-6.10); White Blood Count 9.86 K/ul (4.8-10.8)
[2025-10-14 10:58] LABS: Immature Granulocytes # (auto) 0.03 K/uL (0.01-0.20)
[2025-10-14 11:17] LABS: Alanine Aminotransferase 22.0 U/L (7-52); Albumin Globulin Ratio 1.7 (0.9-2); Albumin Level 4.8 gm/dl (3.4-5.0); Alkaline Phosphatase 105.0 U/L (34-104); Anion Gap 7.0 (3-11); Bilirubin,Total 0.7 mg/dl (0.2-1.0); Blood Urea Nitrogen 13.0 mg/dl (6-23); Calcium 9.2 mg/dl (8.6-10.3); Carbon Dioxide 29.0 mmol/L (21-32); Chloride 106.0 mmol/L (98-107); Creatinine Clr Calc Pharmacy 100.1 ml/min; Globulin 2.8 gm/dl (2.5-4.0); Glucose 121.0 mg/dl (70-99(Fasting)); Lipase 15.0 U/L (11-82); Magnesium 2.2 mg/dl (1.7-2.4); Potassium 3.5 mmol/L (3.5-5.1); Sodium 142.0 mmol/L (136-145); Total Protein 7.6 gm/dl (6.0-8.3)
[2025-10-14 11:29] LABS: Thyroid Stimulating Hormone 2.454 uIu/ml (0.300-4.500)
--- NOTE | 2025-10-14 12:23 | Emergency Department Note ---
Impression & Plan Atrial fibrillation, new onset ED Provider Note NAME: ROSITA HAM AGE: 60 SEX: M : 1965 ARRIVES VIA: Walk-In INFORMANT: Patient, ED PROVIDER(S): Mario Del Angel DO CHIEF COMPLAINT: chest palpitations HPI: This is a 60-year-old male with the PMHx of HTN, TOMY, MVP and BPH presenting to [facility] for further evaluation of chest palpitations. Patient is accompanied by his who provide additional history. He notes chest palpitations that have been ongoing through the weekend. 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 He states this feels like fluttering of his heart. Mild lightheadedness. He notes that he originally blamed this on anxiety. They deny fever or chills. No cough or congestion. Denies chest pain. No shortness of breath. They deny abdominal pain, nausea and vomiting. No urinary complaints. No recent changes in bowel movements. Patient denies recent changes in medications or OTC supplements. No recent changes in medications. Nonsmoker. No significant alcohol use disorder. Patient offers no other complaints, today. ADDITIONAL HISTORY OBTAINED: Per HPI Chronic Medical/Social Conditions Affecting Care: Per HPI PAST MEDICAL HISTORY: See Below PAST SURGICAL HISTORY: See Below FAMILY HISTORY: See Below SOCIAL HISTORY: See Below HOME MEDICATIONS: See Below ALLERGIES: See Below VITALS: See Below PHYSICAL EXAMINATION: GENERAL: Sitting up in bed, alert, well appearing, well nourished, no distress, non-toxic EYE EXAM: normal conjunctiva. OROPHARYNX: no exudate, no erythema, lips, buccal mucosa, and tongue normal and mucous membranes are moist NECK: supple, no nuchal rigidity, no adenopathy, non-tender LUNGS: Clear to auscultation. Normal chest wall mechanics HEART: no murmurs, tachycardic rate, irregular rhythm ABDOMEN: abdomen soft, non-tender, no masses, no rebound or guarding. BACK: Back is symmetrical on inspection and there is no deformity, no midline tenderness, no CVA tenderness. SKIN: no rashes and no bruising UPPER EXTREMITIES: upper extremities are grossly normal. LOWER EXTREMITIES: No pitting edema. NEURO EXAM: Normal sensorium, GCS 15, normal speech, no gross weakness of arms, no gross weakness of legs. MEDICAL DECISION MAKING: Differential diagnoses includes but not limited to ACS, stable vs unstable angina, dysrhythmia, viral URI, pneumonia, pericarditis, pneumothorax, costochondritis, MSK strain, PE, hypertensive emergency, psychological causes, esophageal reflux, gastritis In summary, this is a 60 year old male who presented with chest palpitations. Differential as above. Nursing notes and pertinent past medical records reviewed. Vital signs reviewed and the patient is tachycardic but otherwise afebrile and HDS. History and presentation revealed chest palpitations in the setting of narrow complex irregular tachycardia. His presentation is consistent with new onset atrial fibrillation. No direct cause that is obvious. History of hypertension and MVP. Physical examination revealed as above. He does not appear to be CHF or cardiogenic shock. BP is stable. As a result of my initial evaluation, IV access was established and the patient was placed on CCRM. Therapeutics ordered include IV Plasmalyte 1L bolus while awaiting labs. Diagnostics interpreted by me include EKG and cardiac monitoring as listed below: -Cardiac Monitoring: An order was placed for continuous cardiac monitoring. The monitor shows a rate of 70-130s with irregular rhythm. -ECG: Atrial fibrillation with RVR at a rate of 152 bpm. Question whether this could be atrial flutter. She does have some sawtooth pattern of P waves. There is no significant ST segment changes to suggest STEMI. Intervals otherwise within normal limits. -Repeat ECG: Rate controlled atrial fibrillation at [address] segment changes to suggest STEMI. There are some areas of artifact on this EKG. Patient completed laboratory studies and imaging. CXR independently interpreted by me reveals no evidence of focal consolidation to suggest pna. No large pneumothorax or pleural effusion. No obvious displaced rib fracture. Results independently interpreted by me are no leukocytosis or anemia. There is no significant electrolyte derangements or significant kidney dysfunction from baseline. No changes in LFTs. Normal troponin. TSH is unremarkable. The patient was managed with IVFR, initially, without improvement in his symptoms. No obvious explanation for atrial fibrillation on labs or CXR. IVP boluses of Cardizem as well as PO trialed without jail improvement. Cardizem infusion started in the ED. We will admit for further workup and close monitoring. Ultimately, the decision was made to admit the patient for new onset atrial fibrillation with RVR. I discussed the case with the hospitalist service via telephone/TigerText and they are agreeable to admit the patient to their services. Based on the above, including the patient's age, coexisting illnesses, labs, imaging, and exam findings the decision to treat as an inpatient. I discussed the patient with the hospitalist team who recommended admission to their services. They received the medications, treatments, interventions indicated above and their condition remained guarded. I discussed my findings with the patient and their family and they understand and agree with the treatment plan. All patient / family questions were answered to their satisfaction. CHADSVASc is 1. Anticoagulation discussion held and he is agreeable. Prescription sent and resulted $115 per month. He is agreeable. Provided with discount from the ED Pharmacist. Consults/Care Managements Discussions: Per MDM ER treatment provided: See above Procedures:none Critical Care: I have personally spent 40 minutes of critical care time in direct management of this patient. This includes bedside care, interpretation of diagnostic studies, and testing, discussion with consultants, patient, and family members, and other require inpatient management activities. This 40 minutes is in excess of all separately billable procedures. The chart was completed utilizing [employer] Speech voice recognition software. Grammatical errors, random word insertions, pronoun errors, and incomplete sentences are an occasional consequence of this system due to software limitations, ambient noise, and hardware issues. Any formal questions or concerns about the content, text, or information contained within the body of this dictation should be directly addressed to the physician for clarification. Past Med/Surg History Problem List (Updated 10/14/25 @ 22:29 by Mario Del Angel DO) Atrial fibrillation, new onset (Acute) New onset a-fib BPH loc w urin obs/LUTS (Acute) Catheter-associated urinary tract infection Mitral valve prolapse Thrombocytopenia Staphylococcus aureus bacteremia with sepsis Newly recognized murmur Indwelling Chávez catheter present (Acute) Low platelet count (Acute) Prostatitis (Acute) Sepsis (Acute) TOMY (obstructive sleep apnea) Hypertension Prostatitis Sepsis Gross hematuria Finger laceration (Acute) Medical History BPH loc w urin obs/LUTS Social History Smoking Status: Unknown if ever smoked Tobacco Type: Cigars Do You Dip or Chew Tobacco: No; Hx Alcohol Use: No Hx Substance Use: No Preferred Language: Kyrgyz Communication Ability: Effective Distribution Supervisor Required: No Beliefs That Will Affect Care: None Current Living Situation: Spouse Other Information That Helps Us Care for You: No Feels Safe at Home: Yes Safety Concerns: Feels Safe At This Time Assistive Devices: CPAP Allergies Allergies Allergy/AdvReac Type Severity Reaction Status Date / Time pollen extracts Allergy Unknown Verified 03/08/24 20:37 Home Meds Home Medications Medication Instructions Recorded Confirmed coQ10 (ubiquinol) 100 mg capsule 0 mg PO QAM 02/04/24 10/14/25 amlodipine 5 mg tablet (Norvasc) 5 mg PO QAM 03/08/24 10/14/25 cholecalciferol (vitamin D3) 10 0 unit PO QAM 03/08/24 10/14/25 mcg (400 unit) tablet (Vitamin D3) tamsulosin 0.4 mg capsule 0 mg PO QAM 03/08/24 10/14/25 Previous Rx's Medication Instructions Recorded oxybutynin chloride 5 mg tablet 5 mg PO Q8H PRN bladder spasms #30 03/08/24 tabs apixaban 5 mg tablet 5 mg PO BID #60 tabs 10/14/25 Results & Data (ED) Vital Signs Vital Signs - 24 hr 10/14/25 10:16 10/14/25 10:33 10/14/25 10:43 Temperature 36.7 C Temperature Source Skin Pulse Rate 90 126 H 138 H Pulse Rate [Apical] Pulse Rate from SpO2 Sensor Pulse Rhythm Irregular Pulse Rhythm [Apical] Respiratory Rate 18 Respiratory Effort / Characteristics Non-Labored Spontaneous Respiratory Depth Normal Respiratory Pattern Regular Blood Pressure 130/81 Blood Pressure [Left Arm] Blood Pressure Mean 97 Blood Pressure Mean [Left Arm] Pulse Oximetry 98 98 Oxygen Delivery Method Room Air Room Air Sepsis Recent Fever Within 48 Hours No Sepsis New/Unexplained Change in Mental Status N/A Sepsis Action Taken by Nursing No Action Required 10/14/25 11:00 10/14/25 11:30 10/14/25 12:01 Temperature Temperature Source Pulse Rate Pulse Rate [Apical] 122 H 124 H 100 H Pulse Rate from SpO2 Sensor Pulse Rhythm Pulse Rhythm [Apical] Irregular Irregular Irregular Respiratory Rate 14 14 14 Respiratory Effort / Characteristics Respiratory Depth Respiratory Pattern Blood Pressure Blood Pressure [Left Arm] 128/93 130/85 126/79 Blood Pressure Mean Blood Pressure Mean [Left Arm] 104 100 94 Pulse Oximetry 96 97 96 Oxygen Delivery Method Room Air Room Air Room Air Sepsis Recent Fever Within 48 Hours Sepsis New/Unexplained Change in Mental Status Sepsis Action Taken by Nursing 10/14/25 12:11 10/14/25 13:01 10/14/25 13:27 Temperature Temperature Source Pulse Rate 73 Pulse Rate [Apical] 107 H Pulse Rate from SpO2 Sensor 65 Pulse Rhythm Pulse Rhythm [Apical] Irregular Respiratory Rate 18 12 Respiratory Effort / Characteristics Respiratory Depth Respiratory Pattern Blood Pressure Blood Pressure [Left Arm] 133/84 Blood Pressure Mean Blood Pressure Mean [Left Arm] 100 Pulse Oximetry 97 96 Oxygen Delivery Method Room Air Room Air Room Air Sepsis Recent Fever Within 48 Hours Sepsis New/Unexplained Change in Mental Status Sepsis Action Taken by Nursing 10/14/25 13:30 10/14/25 13:30 10/14/25 14:00 Temperature Temperature Source Pulse Rate 85 Pulse Rate [Apical] Pulse Rate from SpO2 Sensor 61 Pulse Rhythm Pulse Rhythm [Apical] Respiratory Rate 15 Respiratory Effort / Characteristics Respiratory Depth Respiratory Pattern Blood Pressure 121/78 119/84 Blood Pressure [Left Arm] Blood Pressure Mean 89 100 Blood Pressure Mean [Left Arm] Pulse Oximetry 97 Oxygen Delivery Method Room Air Sepsis Recent Fever Within 48 Hours Sepsis New/Unexplained Change in Mental Status Sepsis Action Taken by Nursing 10/14/25 14:00 10/14/25 14:30 10/14/25 14:30 Temperature Temperature Source Pulse Rate 80 85 Pulse Rate [Apical] Pulse Rate from SpO2 Sensor 66 61 Pulse Rhythm Pulse Rhythm [Apical] Respiratory Rate 16 12 Respiratory Effort / Characteristics Respiratory Depth Respiratory Pattern Blood Pressure 131/82 Blood Pressure [Left Arm] Blood Pressure Mean 102 Blood Pressure Mean [Left Arm] Pulse Oximetry 97 96 Oxygen Delivery Method Room Air Room Air Sepsis Recent Fever Within 48 Hours Sepsis New/Unexplained Change in Mental Status Sepsis Action Taken by Nursing 10/14/25 14:48 10/14/25 15:00 10/14/25 15:00 Temperature Temperature Source Pulse Rate 101 H 76 Pulse Rate [Apical] Pulse Rate from SpO2 Sensor 70 Pulse Rhythm Pulse Rhythm [Apical] Respiratory Rate 17 Respiratory Effort / Characteristics Respiratory Depth Respiratory Pattern Blood Pressure 123/90 Blood Pressure [Left Arm] Blood Pressure Mean 101 Blood Pressure Mean [Left Arm] Pulse Oximetry 98 Oxygen Delivery Method Sepsis Recent Fever Within 48 Hours Sepsis New/Unexplained Change in Mental Status Sepsis Action Taken by Nursing Laboratory Data 10/14/25 10:30 10/14/25 10:30 Lab Results 10/14/25 Range/Units 10:30 WBC 9.86 (4.8-10.8) K/ul RBC 5.69 (4.70-6.10) M/uL Hgb 16.9 (14.0-18.0) g/dL Hct 48.7 (42.0-52.0) % MCV 85.6 (80.0-100.0) fL MCH 29.7 (25.0-34.0) pg MCHC 34.7 (32.0-36.0) g/dL RDW Std Deviation 38.7 (36.4-46.3) fL RDW Coeff of Rojas 12.6 (11.5-14.5) % Plt Count 175 (130-400) K/uL MPV 12.0 (9.4-12.4) fL Immature Gran % (Auto) 0.3 % Neut % (Auto) 56.8 % Lymph % (Auto) 34.2 % Tucker % (Auto) 6.6 % Eos % (Auto) 1.7 % Baso % (Auto) 0.4 % Neut # (Auto) 5.60 (1.40-6.50) K/uL Lymph # (Auto) 3.37 (1.20-3.40) K/uL Tucker # (Auto) 0.65 H (0.11-0.59) K/uL Eos # (Auto) 0.17 (0.00-0.50) K/uL Baso # (Auto) 0.04 (0.00-0.20) K/uL Immature Gran # (Auto) 0.03 (0.01-0.20) K/uL Sodium 142 (136-145) mmol/L Potassium 3.5 (3.5-5.1) mmol/L Chloride 106 (98-107) mmol/L Carbon Dioxide 29 (21-32) mmol/L Anion Gap 7 (3-11) BUN 13 (6-23) mg/dl Creatinine 1.01 (0.6-1.4) mg/dl Est Cr Clr Drug Dosing 100.1 ml/min eGFR 84.09 BUN/Creatinine Ratio 12.9 (10-20) Glucose 121 H (70-99(Fasting)) mg/dl Calcium 9.2 (8.6-10.3) mg/dl Phosphorus 2.5 (2.5-4.9) mg/dl Magnesium 2.2 (1.7-2.4) mg/dl Total Bilirubin 0.7 (0.2-1.0) mg/dl AST 21 (13-39) U/L ALT 22 (7-52) U/L Alkaline Phosphatase 105 H (34-104) U/L Troponin I High Sens 13.8 (0-20) pg/ml Total Protein 7.6 (6.0-8.3) gm/dl Albumin 4.8 (3.4-5.0) gm/dl Globulin 2.8 (2.5-4.0) gm/dl Albumin/Globulin Ratio 1.7 (0.9-2) Lipase 15 (11-82) U/L TSH 2.454 (0.300-4.500) uIu/ml Administered Medications Diltiazem HCl 125 mg/ Dextrose 125 mls @ 5 mls/hr IV .Q24H MARGI; Protocol Stop: 11/13/25 14:44 Last Admin: 10/14/25 15:42 Dose: 5 mg/hr, 5 mls/hr Documented By: TOM Co-signed By: NILSONW Discontinued Medications Diltiazem HCl (Diltiazem Hcl 5 Mg/Ml 5 Ml Vial) 20 mg IV NOW STA Stop: 10/14/25 11:36 Last Admin: 10/14/25 11:42 Dose: 20 mg Documented By: LIZZY Co-signed By: MARIBEL Diltiazem HCl (Diltiazem Hcl 30 Mg Tab) 30 mg PO NOW ONE Stop: 10/14/25 12:23 Last Admin: 10/14/25 12:42 Dose: 30 mg Documented By: MARIBEL Diltiazem HCl (Diltiazem Hcl 5 Mg/Ml 5 Ml Vial) 25 mg IV NOW STA Stop: 10/14/25 12:54 Last Admin: 10/14/25 13:07 Dose: 25 mg Documented By: LIZZY Co-signed By: KVNG Diltiazem HCl (Diltiazem Hcl 5 Mg/Ml 5 Ml Vial) 5 mg IV NOW STA Stop: 10/14/25 14:46 Last Admin: 10/14/25 15:00 Dose: 5 mg Documented By: LIZZY Co-signed By: FAUZIA Parenteral Electrolytes (Plasma-Lyte A Ph 7.4) 1,000 mls @ 999 mls/hr IV .Q1H1M ONE Stop: 10/14/25 11:28 Last Infusion: 10/14/25 11:32 Dose: Infused Documented By: Admin: 10/14/25 10:31 Dose: 999 mls/hr Documented By: GIOVANA Miscellaneous (Stat Iv Infusion Titration Per Protocol) 1 each N/A NOW STA Stop: 10/14/25 14:46 Last Admin: 10/14/25 16:41 Dose: Not Given Documented By: JOSE MARTIN Potassium Chloride (Potassium Chloride Crtab 20 Meq Tabcr) 40 meq PO NOW STA Stop: 10/14/25 12:54 Last Admin: 10/14/25 13:06 Dose: 40 meq Documented By: LIZZY Imaging Data Radiologist's Impression: Chest X-Ray 10/14/25 10:28 XR chest 1V portable CLINICAL HISTORY: Chest pain, nonspecific COMPARISON STUDY: 05/27/2009 FINDINGS: There is mild cardiomegaly without pulmonary vascular congestion. No consolidation or pleural effusion. No pneumothorax. IMPRESSION: No acute findings. ACT 112: Negative or not required by law. Electronically signed by: Thomas Moyer M.D. 10/14/2025 10:46 AM Discharge Plan Visit Data Chief Complaint: Cardiac Assessment Stated Complaint: IRREGULAR HEARTBEAT/FLUTTER ED Provider: Mario Del Angel Discharge Problem: Atrial fibrillation, new onset Patient Disposition: Admitted As Inpatient Condition: Fair Discharge Instructions Interventions: ED Discharge Assessment Last Done: 10/14/25 20:06
--- NOTE | 2025-10-14 12:57 | Electrocardiogram Report ---
Test Reason : Blood Pressure : */* mmHG Vent. Rate : 152 BPM Atrial Rate : * BPM P-R Int : * ms QRS Dur : 92 ms QT Int : 274 ms P-R-T Axes : * -26 66 degrees QTcB Int : 435 ms Atrial fibrillation with rapid ventricular response with premature ventricular or aberrantly conducte d complexes Nonspecific ST abnormality Abnormal ECG When compared with ECG of 08-Mar-2024 19:35, Atrial fibrillation has replaced Sinus rhythm Vent. rate has increased by 68 bpm Criteria for Inferior infarct are no longer Present ST now depressed in Inferior leads ST now depressed in Anterolateral leads T wave amplitude has increased in Anterior leads Confirmed by Sebas Pedroza ([id number]) on 10/14/2025 12:57:46 PM Referred By: REFERRED SELF Confirmed By: Sebas Pedroza
--- NOTE | 2025-10-14 13:00 | Electrocardiogram Report ---
Test Reason : Blood Pressure : */* mmHG Vent. Rate : 104 BPM Atrial Rate : * BPM P-R Int : * ms QRS Dur : 100 ms QT Int : 360 ms P-R-T Axes : * -33 20 degrees QTcB Int : 473 ms Atrial fibrillation with rapid ventricular response Left axis deviation Minimal voltage criteria for LVH, may be normal variant possible Inferior infarct , age undetermined Abnormal ECG When compared with ECG of 14-Oct-2025 10:24, ST no longer depressed in Lateral leads Confirmed by Sebas Pedroza ([id number]) on 10/14/2025 1:00:03 PM Referred By: REFERRED SELF Confirmed By: Sebas Pedroza
[2025-10-14] MEDS: POTASSIUM CHLORIDE CRTAB 20 MEQ TABCR PO STA (13:06)
[2025-10-14] MEDS ORDERED: ACETAMINOPHEN 325 MG TAB PO PRN (15:20)
[2025-10-14] MEDS: STAT IV Infusion **Titration per Protocol STA (16:41)
--- NOTE | 2025-10-14 16:58 | History & Physical Report ---
Date of Service October 14, 2025 Assessment & Plan (1) New onset a-fib: Plan: -on cardizem drip -eliquis -echo -cardiology consulted (2) Hypertension: Plan: -amlodipine History of Present Illness Chief Complaint: Palpitations Primary Care Provider: Karen Neff DO Pt is a 60 y/o male with pmh of HTN, BPH, sleep apnea who presents with episode of palpitations. Pt denies any chest pain, lightheadedness, or SOB. He does admit to having a similar episode that self resolved a few weeks ago. In the ER his EKG showed afib with RVR @ 152bpm. He was given cardizem IV and started on a cardizem drip. Pt is being admitted for further evaluation and treatment of new onset afib including echo and cardiology consult. Allergies Allergy/AdvReac Type Severity Reaction Status Date / Time pollen extracts Allergy Unknown Verified 03/08/24 20:37 SEASONAL Allergy Intermediate ITCHY EYES Uncoded 03/08/24 14:47 , CONGESTION Home Medications Medication Instructions Recorded Confirmed Type coQ10 (ubiquinol) 100 mg capsule 0 mg PO QAM 02/04/24 10/14/25 History amlodipine 5 mg tablet (Norvasc) 5 mg PO QAM 03/08/24 10/14/25 History cholecalciferol (vitamin D3) 10 0 unit PO QAM 03/08/24 10/14/25 History mcg (400 unit) tablet (Vitamin D3) oxybutynin chloride 5 mg tablet 5 mg PO Q8H PRN bladder spasms #30 03/08/24 10/14/25 Rx tabs tamsulosin 0.4 mg capsule 0 mg PO QAM 03/08/24 10/14/25 History apixaban 5 mg tablet 5 mg PO BID #60 tabs 10/14/25 Rx Past Med/Surg History Problem List (Updated 10/14/25 @ 16:57 by John Mariano MD) New onset a-fib BPH loc w urin obs/LUTS (Acute) Catheter-associated urinary tract infection Mitral valve prolapse Thrombocytopenia Staphylococcus aureus bacteremia with sepsis Newly recognized murmur Indwelling Chávez catheter present (Acute) Low platelet count (Acute) Prostatitis (Acute) Sepsis (Acute) TOMY (obstructive sleep apnea) Hypertension Prostatitis Sepsis Gross hematuria Finger laceration (Acute) Medical History BPH loc w urin obs/LUTS Social History Smoking Status: Former smoker Tobacco Type: Cigars Do You Dip or Chew Tobacco: No; Hx Alcohol Use: Yes Alcohol type: beer and wine Hx Substance Use: No Preferred Language: Yakut Communication Ability: Effective Race Board Attendant Required: No Beliefs That Will Affect Care: None Current Living Situation: Significant Other Feels Safe at Home: Yes Assistive Devices: CPAP Review of Systems Review of Systems: CONST: Negative for fever, body aches and chills. HENT: Negative for neck pain/stiffness, headache, congestion, sore throat, swelling. EYES: Negative for discharge/pain or vision changes. RESP: Negative for cough/hemoptysis and shortness of breath. CV: Negative chest pain, difficulty breathing, +palpitations. ABD: Negative pain, nausea, vomiting. : Negative increase frequency, dysuria, blood in urine or stool. MUSC: Negative for muscle aches, edema. SKIN: Negative rash, lesions/sores. NEURO: Negative headache, dizziness, weakness. Physical Exam Physical Exam: GENERAL APPEARANCE NAD, activity normal for age, well developed/ well nourished, no cyanosis, pallor, or diaphoresis. EYES lids/conjunctiva normal. EARS/NOSE/THROAT Mucous membranes moist, nares normal, lips/teeth normal uvula midline without oral pharyngeal erythema, exudate or swelling TMs normal bilaterally. No lymphangitis/lymphedema. HEAD/NECK normocephalic atraumatic, no facial trauma, neck is supple. RESPIRATORY respiratory effort normal, speaks in full sentences, no tripod position, no accessory muscle use. Lungs clear to auscultation without rhonchi, wheezes, rales CARDIAC Regular rate and rhythm, no edema. ABDOMINAL Soft, ND/NT. No evidence of fluid wave. No pulsatile masses on exam, rebound tenderness, Kohler sign or pain over Mcburney's point. MUSCLES/EXTREMITIES No abnormal range of motion, no swelling. SKIN Warm, pink and dry. No rashes, dermatoses, petechiae or lesions. NEUROLOGICAL Speech is clear and appropriate. Normal level of consciousness. Gait and coordination are normal. 5/5 strength in all extremities. PSYCH Normal mood and affect. Judgement/competence is appropriate Results & Data Results & Data Vital Signs (Past 12 Hours) Vital Signs Temp Pulse Pulse Resp BP BP Pulse Ox 10/14/25 16:28 100 H 18 129/88 96 10/14/25 15:00 76 17 98 10/14/25 15:00 123/90 10/14/25 14:48 101 H 10/14/25 14:30 85 12 96 10/14/25 14:30 131/82 10/14/25 14:00 80 16 97 10/14/25 14:00 119/84 10/14/25 13:30 121/78 10/14/25 13:30 85 15 97 10/14/25 13:27 73 12 96 10/14/25 13:01 107 H 18 133/84 97 10/14/25 12:11 10/14/25 12:01 100 H 14 126/79 96 10/14/25 11:30 124 H 14 130/85 97 10/14/25 11:00 122 H 14 128/93 96 10/14/25 10:43 138 H 10/14/25 10:33 126 H 98 10/14/25 10:16 36.7 C 90 18 130/81 98 O2 Del Method 10/14/25 16:28 Room Air 10/14/25 15:00 10/14/25 15:00 10/14/25 14:48 10/14/25 14:30 Room Air 10/14/25 14:30 10/14/25 14:00 Room Air 10/14/25 14:00 10/14/25 13:30 10/14/25 13:30 Room Air 10/14/25 13:27 Room Air 10/14/25 13:01 Room Air 10/14/25 12:11 Room Air 10/14/25 12:01 Room Air 10/14/25 11:30 Room Air 10/14/25 11:00 Room Air 10/14/25 10:43 10/14/25 10:33 Room Air 10/14/25 10:16 Room Air PG Care Time/CCT Total # of Minutes Spent Total Time Spent with Patient: Total time spent is greater than 50% in coordination of care (as documented) at patient's floor/unit and/or counseling patient: Coding Level of Care Code 26114 INT INP/OBS CARE MIN Diagnoses New onset a-fib I48.91 Hypertension I10 Hypertension type: primary hypertension (2) Hypertension Hypertension type: primary hypertension Qualified Code(s): I10 - Essential (primary) hypertension
--- NOTE | 2025-10-14 17:51 | XCELERA ---
[id number]
[2025-10-14] MEDS ORDERED: APIXABAN 5 MG TABLET PO SCH (21:00)
[2025-10-14] MEDS: APIXABAN 5 MG TABLET PO SCH (23:36)
[2025-10-15 06:31] LABS: Hematocrit (blood only) 44.4 % (42.0-52.0); Hemoglobin 15.5 g/dL (14.0-18.0); Mean Corpuscular Hemoglobin 29.8 pg (25.0-34.0); Mean Corpuscular Volume 85.4 fL (80.0-100.0); Platelet Count 138 K/uL (130-400); RDW Standard Deviation 38.5 fL (36.4-46.3); Red Blood Count 5.20 M/uL (4.70-6.10); White Blood Count 9.35 K/ul (4.8-10.8)
[2025-10-15 07:04] LABS: Anion Gap 7.0 (3-11); Blood Urea Nitrogen 14.0 mg/dl (6-23); Calcium 8.6 mg/dl (8.6-10.3); Carbon Dioxide 27.0 mmol/L (21-32); Chloride 107.0 mmol/L (98-107); Creatinine Clr Calc Pharmacy 114.9 ml/min; Glucose 112.0 mg/dl (70-99(Fasting)); Potassium 3.8 mmol/L (3.5-5.1); Sodium 141.0 mmol/L (136-145)
[2025-10-15] MEDS ORDERED: NON-FORMULARY MEDICATION (Coq10 (Ubiquinol) 100 mg Capsule) PO SCH (09:00)
--- NOTE | 2025-10-15 09:00 | Cardiology Consultation ---
Date of Consultation October 15, 2025 Assessment & Plan (1) Atrial fibrillation, new onset: Plan Afib with RVR; new onset - currently on a Cardizem gtt. We will convert him over to PO Cardizem. EF 60- 65% with mild LVH. - He is interested in a cardioversion, he does not appear to be decompensated which could potentially make him a good candidate. He would need a TIM before hand if this is going to be performed during this hospital stay or within the next month. He is going to talk this over with his before making any decisions. - continue with Eliquis 5mg BID HTN - given Cardizem has blood pressure lowering effects, amlodipine can be discontinued. Supervising Physician Co-Signing Physician Notes I saw and examined the patient and agree with documentation by LEIDY Gordillo. Briefly, the patient has had some symptoms of palpitations over the past several weeks. Some extended duration lasting a few hours. Few additional symptoms. He has a prolonged and persistent episode of atrial fibrillation currently. Risk factors for atrial fibrillation would include obstructive sleep apnea and hypertension. No clear precipitant. He has had some difficulty with rate control and we are escalating his diltiazem. We will replace his amlodipine with diltiazem when he leaves the hospital. He has been started on systemic anticoagulation with Eliquis which seems appropriate. We can discuss long-term anticoagulation given his relatively low [id number] score in the outpatient setting. My hope is that he converts spontaneously at which point we can send him home on some medical therapy to include diltiazem and Eliquis. If he does not convert by tomorrow morning I have arranged for transesophageal echocardiogram and cardioversion. History of Present Illness Attending Physician: John Mariano MD History of Present Illness Jose is a 60-year-old male with a past medical history of HTN, TOMY who presented to the emergency room on 10/15/2025 for further evaluations of palpitations. These chest palpitations started over the weekend while he was at work. 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 Initially, he attributed these palpitations to anxiety. He said he took a break for a few minutes and continued on with his shift. He is unsure if the palpitations ever went away as he became quite distracted with work for the rest of the evening. The next day, he noticed the palpitations again while he was resting. Again, he is unsure if the palpitations ever went away as he continued on with his day though he noticed palpitations when he would rest. He states he had 5 or so similar episodes of palpitations over the last year, but states these episodes were much shorter. His EKG in the ER revealed atrial fibrillation with RVR at 152 bpm. There is some nonspecific ST abnormality noted as well. HS troponin of 13.8. Overnight, he has remained in atrial fibrillation with rates ranging from the 70s to 90s. This morning, his rates have increased again ranging from the 1 teens to 130s. He is currently on a Cardizem drip at 5. Eliquis 5mg BID has been initiated. He has had an echocardiogram completed. Mild concentric LVH is noted. EF of 60 to 65%. Left atrium is mildly dilated. Mild MR and mild TR noted. In the ER, he complained of mild dizziness. This morning, he denies having this symptom. He denies any near-syncope or syncope. He denies any chest discomfort. He can occasionally feel palpitations this morning. He denies any shortness of breath. He denies any swelling to his lower extremities. He states he occasionally will smoke cigars. He denies any routine tobacco abuse. Denies any excessive alcohol use. He denies substance abuse. For the most part, he feels that he eats a fairly healthy diet. He does not have much of an exercise regimen though he is quite active at work spending his entire shifts on his feet. He is also active doing things around his home. To his knowledge, there is no history of atrial fibrillation in his family. He believes there may be a history of CAD. Allergies Allergy/AdvReac Type Severity Reaction Status Date / Time pollen extracts Allergy Unknown Verified 03/08/24 20:37 Home Medications Medication Instructions Recorded Confirmed Type coQ10 (ubiquinol) 100 mg capsule 0 mg PO QAM 02/04/24 10/14/25 History amlodipine 5 mg tablet (Norvasc) 5 mg PO QAM 03/08/24 10/14/25 History cholecalciferol (vitamin D3) 10 0 unit PO QAM 03/08/24 10/14/25 History mcg (400 unit) tablet (Vitamin D3) oxybutynin chloride 5 mg tablet 5 mg PO Q8H PRN bladder spasms #30 03/08/24 10/14/25 Rx tabs tamsulosin 0.4 mg capsule 0 mg PO QAM 03/08/24 10/14/25 History apixaban 5 mg tablet 5 mg PO BID #60 tabs 10/14/25 Rx Patient History Medical History BPH loc w urin obs/LUTS Social History Smoking Status: Unknown if ever smoked Tobacco Type: Cigars Do You Dip or Chew Tobacco: No; Hx Alcohol Use: No Hx Substance Use: No Preferred Language: Montserratian Communication Ability: Effective Finisher Brush Required: No Beliefs That Will Affect Care: None Current Living Situation: Spouse Feels Safe at Home: Yes Assistive Devices: None Review of Systems Review of Systems: per hpi Physical Exam Physical Exam: Physical Exam: AOx3. Mood affect appear normal. All questions appropriately. HEENT: Sclerae are anicteric. Pupils are equal and reactive to light and accommodation. Extraocular movements were intact. Neuro: Cranial nerves intact Lungs: Lungs are clear to auscultation bilaterally. There are no rales wheezes or rhonchi. Normal respiratory effort without use of accessory muscles. Cardiac: Cardiac rhythm is irregularly irregular. Rate is elevated. There are no murmurs on examination. The PMI was not markedly displaced on palpation. Extremities: Patient has bilateral radial pulses that are equal in intensity. There is no evidence cyanosis or clubbing. There was no evidence of significant peripheral edema bilaterally. Skin: There are no rashes noted on examination today. Results & Data Vital Signs (Past 12 Hours) Vital Signs Temp Pulse Pulse Resp BP BP Pulse Ox 10/15/25 08:19 37.1 C 114 H 20 161/109 H 97 10/15/25 03:17 36.6 C 61 18 156/82 H 95 10/15/25 00:40 36.7 C 75 17 125/78 97 10/14/25 21:30 100 H 10/14/25 21:30 100 H O2 Del Method 10/15/25 08:19 Room Air 10/15/25 03:17 Room Air 10/15/25 00:40 Room Air 10/14/25 21:30 10/14/25 21:30 PG Care Time/CCT Total # of Minutes Spent Total Time Spent with Patient: Total time spent is greater than 50% in coordination of care (as documented) at patient's floor/unit and/or counseling patient: [place] [address] IN/OBS CONSULT LVL 4,60M Patient Type New Diagnoses Atrial fibrillation, new onset I48.91
[2025-10-15] MEDS: CHOLECALCIFEROL 10 MCG (400 UNITS) TAB PO SCH (09:08)
[2025-10-15] MEDS: TAMSULOSIN HCL 0.4 MG CAP PO SCH (09:09)
--- NOTE | 2025-10-15 10:19 | Hospitalist Progress Note ---
Date of Service October 15, 2025 Assessment & Plan (1) New onset a-fib: Plan: -on cardizem drip -eliquis -echo -cardiology consult appreciated -started on Cardizem po -awaiting patient decision on cardioversion -will need TIM if willing to proceed this admisson (2) Hypertension: Plan: -amlodipine dc'd -pt on cardizem now Admission and Anticipated Discharge Date Admission Date: October 14, 2025 Subjective No events overnight. Pt resting in bed. Review of Systems Review of Systems: CONST: Negative for fever, body aches and chills. HENT: Negative for neck pain/stiffness, headache, congestion, sore throat, swelling. EYES: Negative for discharge/pain or vision changes. RESP: Negative for cough/hemoptysis and shortness of breath. CV: Negative chest pain, difficulty breathing, +palpitations. ABD: Negative pain, nausea, vomiting. : Negative increase frequency, dysuria, blood in urine or stool. MUSC: Negative for muscle aches, edema. SKIN: Negative rash, lesions/sores. NEURO: Negative headache, dizziness, weakness. Physical Exam Physical Exam: GENERAL APPEARANCE NAD, activity normal for age, well developed/ well nourished, no cyanosis, pallor, or diaphoresis. EYES lids/conjunctiva normal. EARS/NOSE/THROAT Mucous membranes moist, nares normal, lips/teeth normal uvula midline without oral pharyngeal erythema, exudate or swelling TMs normal bilaterally. No lymphangitis/lymphedema. HEAD/NECK normocephalic atraumatic, no facial trauma, neck is supple. RESPIRATORY respiratory effort normal, speaks in full sentences, no tripod position, no accessory muscle use. Lungs clear to auscultation without rhonchi, wheezes, rales CARDIAC Regular rate and rhythm, no edema. ABDOMINAL Soft, ND/NT. No evidence of fluid wave. No pulsatile masses on exam, rebound tenderness, Kohler sign or pain over Mcburney's point. MUSCLES/EXTREMITIES No abnormal range of motion, no swelling. SKIN Warm, pink and dry. No rashes, dermatoses, petechiae or lesions. NEUROLOGICAL Speech is clear and appropriate. Normal level of consciousness. Gait and coordination are normal. 5/5 strength in all extremities. PSYCH Normal mood and affect. Judgement/competence is appropriate Results & Data Results & Data Vital Signs (Past 12 Hours) Vital Signs Temp Pulse Resp BP BP Pulse Ox O2 Del Method 10/15/25 08:19 37.1 C 114 H 20 161/109 H 97 Room Air 10/15/25 03:17 36.6 C 61 18 156/82 H 95 Room Air 10/15/25 00:40 36.7 C 75 17 125/78 97 Room Air PG Care Time/CCT Total # of Minutes Spent Total Time Spent with Patient: Total time spent is greater than 50% in coordination of care (as documented) at patient's floor/unit and/or counseling patient: Coding Level of Care Code 40458 SUB INP/OBS CARE 2/35MIN Diagnoses New onset a-fib I48.91 Hypertension I10 Hypertension type: primary hypertension (2) Hypertension Hypertension type: primary hypertension Qualified Code(s): I10 - Essential (primary) hypertension
[2025-10-16 06:28] LABS: Hematocrit (blood only) 43.1 % (42.0-52.0); Hemoglobin 15.4 g/dL (14.0-18.0); Mean Corpuscular Hemoglobin 30.4 pg (25.0-34.0); Mean Corpuscular Volume 85.0 fL (80.0-100.0); Platelet Count 150 K/uL (130-400); RDW Standard Deviation 38.0 fL (36.4-46.3); Red Blood Count 5.07 M/uL (4.70-6.10); White Blood Count 10.17 K/ul (4.8-10.8)
[2025-10-16 06:42] LABS: Anion Gap 8.0 (3-11); Blood Urea Nitrogen 18.0 mg/dl (6-23); Calcium 8.7 mg/dl (8.6-10.3); Carbon Dioxide 27.0 mmol/L (21-32); Chloride 108.0 mmol/L (98-107); Creatinine Clr Calc Pharmacy 103.2 ml/min; Glucose 123.0 mg/dl (70-99(Fasting)); Potassium 3.5 mmol/L (3.5-5.1); Sodium 143.0 mmol/L (136-145)
--- NOTE | 2025-10-16 06:53 | Anesthesiology Consultation ---
Date of Service October 15, 2025 Assessment & Plan (1) Atrial fibrillation, new onset: Chart Review Chart Review: Acceptable Risk for Surgery Consults Requested none ASA ASA3 Proposed Anesthesia Anesthesia Type: MAC Risk / Benefits Reviewed With: PT / POA / Parent / Guardian, Accepts Plan and Informed Consent Obtained History Surgery Operation Date: 10/16/25 07:30 Proposed Procedures p Transesophageal Echo w/Anesthesia - Sebas Pedroza MD s Cardioversion w/Anesthesia Sedation - Sebas Pedroza MD Height/Weight Height: 6 ft 2 in Weight: 110 kg Allergies Allergy/AdvReac Type Severity Reaction Status Date / Time pollen extracts Allergy Unknown Verified 03/08/24 20:37 Medications Home Medications Medication Instructions Recorded Confirmed Last Taken coQ10 (ubiquinol) 100 mg capsule 0 mg PO QAM 02/04/24 10/14/25 03/08/24 amlodipine 5 mg tablet (Norvasc) 5 mg PO QAM 03/08/24 10/14/25 03/08/24 cholecalciferol (vitamin D3) 10 0 unit PO QAM 03/08/24 10/14/25 03/08/24 mcg (400 unit) tablet (Vitamin D3) oxybutynin chloride 5 mg tablet 5 mg PO Q8H PRN bladder spasms #30 03/08/24 10/14/25 03/06/24 tabs tamsulosin 0.4 mg capsule 0 mg PO QAM 03/08/24 10/14/25 03/08/24 apixaban 5 mg tablet 5 mg PO BID #60 tabs 10/14/25 Unknown Active Medications Generic Name Dose Route Start Last Admin Trade Name Rubénq PRN Reason Stop Dose Admin Apixaban 5 mg 10/14/25 21:00 10/15/25 19:56 Apixaban 5 Mg Tablet PO 11/13/25 20:59 5 mg BID MARGI Administration Diltiazem HCl 240 mg 10/15/25 10:00 10/15/25 10:44 Diltiazem Hcl 240 Mg Capcr PO 11/14/25 09:59 240 mg QAM MARGI Administration Diltiazem HCl 125 mg/ Dextrose 125 mls @ 15 mls/hr 10/14/25 14:45 10/15/25 23:24 IV 11/13/25 14:44 15 mg/hr .Q8H20M MARGI 15 mls/hr Administration Protocol 15 MG/HR Tamsulosin HCl 0.4 mg 10/15/25 09:00 10/15/25 09:09 Tamsulosin Hcl 0.4 Mg Cap PO 11/14/25 08:59 Not Given QAM MARGI Vitamin D 10 mcg 10/15/25 09:00 10/15/25 09:08 Cholecalciferol 10 Mcg (400 Units) Tab PO 11/14/25 08:59 10 mcg QAM MARGI Administration NPO Date Last Intake of Fluids: 10/15/25 Time Last Intake of Fluids: 23:00 Date Last Intake of Solids: 10/15/25 Time Last Intake of Solids: 21:00 Past Medical History Medical History (Updated 10/16/25 @ 06:48 by Ariana Ulrich DO) New onset a-fib Hypertension Urinary retention (02/13/24) TOMY on CPAP (02/13/24) Hypertension Weight disorder Tobacco user Seasonal allergies Mixed hyperlipidemia BPH loc w urin obs/LUTS Exercise / Class Metabolic Activity II 4-5 Yardwork/Stairs/Walk up hill Past Surgical History Surgical History (Updated 10/16/25 @ 07:28 by Ariana Ulrich DO) Hx of transurethral resection of prostate Hx of tonsillectomy Hx of wisdom tooth extraction Past Anesthesia History No Hx of Anesthesia Complications and No Family Hx of Anesthesia Complications History of PONV No Hx of PONV and No Hx of Motion Sickness Social History Smoking Status: Unknown if ever smoked Do You Dip or Chew Tobacco: No Hx Alcohol Use: No Alcohol type: beer and wine alcohol intake frequency: holidays/special occasions only Hx Substance Use: No Physical Exam Vital Signs Last Vital Signs Temp 37.1 C 10/16/25 02:51 Pulse 92 H 10/16/25 02:51 Resp 20 10/16/25 02:51 BP 164/91 H 10/16/25 02:51 Pulse Ox 95 10/16/25 02:51 O2 Del Method Room Air 10/16/25 02:51 Constitutional + obese ENMT Mouth: no TMJ abnormality Thyromental Distance: > or= 3.5 Finger Breadths Mallampati Class: III Neck normal visual inspection and trachea midline; neck extension not limited Respiratory normal respiratory effort Auscultation: lungs clear to auscultation bilaterally Cardiovascular Rate/Rhythm: regular rate (irreg irreg) and regular rhythm Heart Sounds: no murmur Musculoskeletal Spine: normal cervical ROM Extremities: full ROM of extremities Neurologic moves all extremities Psychiatric Orientation: alert and oriented x 3 Testing Laboratory Results 10/16/25 05:57 10/16/25 05:57 Electrocardiogram Date: 10/14/25 Vent. Rate : 104 BPM Atrial Rate : * BPM P-R Int : * ms QRS Dur : 100 ms QT Int : 360 ms P-R-T Axes : * -33 20 degrees QTcB Int : 473 ms Atrial fibrillation with rapid ventricular response Left axis deviation Minimal voltage criteria for LVH, may be normal variant possible Inferior infarct , age undetermined Abnormal ECG Chest X-Ray Date: 10/14/25 Findings: + NAD Echocardiogram Date: 10/14/25 EF: 60-65% LV Function: normal RWMA: + none Other Findings: + atrial enlargement (mild left) Valvular Disease: + MR (mild)
[2025-10-16] MEDS ORDERED: LIDOCAINE 2% 2 ML VIAL/AMP(20MG/ML) INFIL ONE (07:06)
[2025-10-16] MEDS ORDERED: PROPOFOL IV EMULSION 10 MG/ML 20 ML VIAL IV ONE ×3 (07:07)
[2025-10-16] MEDS ORDERED: BENZOCAINE/TETRACAIN/BUTAM 50 APPLN/5 GM CAN EXT ONE (07:32)
--- NOTE | 2025-10-16 08:01 | Cardioversion ---
Date of Service October 16, 2025 PG Electrical Cardioversion Rp Electrical Cardioversion Report Procedure performed: Cardioversion Indication: The patient is a 60-year-old gentleman with persistent atrial fibrillation Staff research instructor: Sebas Pedroza MD Procedure in detail: The patient was informed of the risks benefits and alternatives to the intended procedure. He understood such which proceed. He was taken to the cardiac catheterization suite holding area. A general anesthetic was administered by the Anesthesiology Service. Once appropriately anesthetized, the patient was cardioverted using 200 joules delivered in a biphasic fashion. This returned the patient to sinus rhythm. The patient tolerated procedure well, there were no immediate complications. Patient was neurologically intact subsequent to the procedure. Impression: Successful cardioversion from atrial fibrillation to normal sinus rhythm Coding Level of Care Code 18609 CARDIOVERSION, ELECTIVE Additional Codes Electrical Cardioversion Report ([id number])
--- NOTE | 2025-10-16 08:04 | Anesthesiology Progress Note ---
Date of Service October 16, 2025 Anesthesia Post Procedure Vital Signs Vital Signs: Temp Pulse Pulse Resp BP BP Pulse Ox 10/16/25 07:55 64 18 113/70 97 10/16/25 07:25 68 18 132/91 94 10/16/25 02:51 37.1 C 92 H 20 164/91 H 95 10/15/25 22:41 37.3 C 91 H 18 150/82 H 96 10/15/25 21:40 87 10/15/25 19:44 37.1 C 100 H 18 153/89 H 96 10/15/25 16:05 37.0 C 105 H 22 151/92 H 98 10/15/25 14:24 107 H 10/15/25 11:27 37.0 C 126 H 21 119/89 97 10/15/25 08:19 37.1 C 114 H 20 161/109 H 97 O2 Del Method O2 Flow Rate 10/16/25 07:55 Oxymask 4 10/16/25 07:25 Room Air 10/16/25 02:51 Room Air 10/15/25 22:41 Room Air 10/15/25 21:40 10/15/25 19:44 Room Air 10/15/25 16:05 Room Air 10/15/25 14:24 10/15/25 11:27 Room Air 10/15/25 08:19 Room Air Transfer of Care Handoff Completed per policy Notes Mental Status: alert / awake / arousable Patient Amnestic to Procedure: Yes Nausea / Vomiting: adequately controlled Pain: adequately controlled Airway Patency, RR, SpO2: stable & adequate BP & HR: stable & adequate Hydration State: stable & adequate Anesthetic Complications: no major complications apparent and Pt Satisfied with anesthetic care
[2025-10-16 09:50] VITALS: PULSE 55; RESP 15; TEMP 98.4; O2SAT 98
--- NOTE | 2025-10-16 10:00 | Discharge Summary ---
Discharge Summary Date of Service October 16, 2025 Principal Dx & Hospital Course #1 = Principal Diagnosis (1) New onset a-fib: -on cardizem drip -eliquis -echo -cardiology consult appreciated -started on Cardizem po -pt was successfully cardioverted on 10/16 in NSR (2) Hypertension: -amlodipine dc'd -pt on cardizem now Admission HPI Per Admitting Provider Pt is a 60 y/o male with pmh of HTN, BPH, sleep apnea who presents with episode of palpitations. Pt denies any chest pain, lightheadedness, or SOB. He does admit to having a similar episode that self resolved a few weeks ago. In the ER his EKG showed afib with RVR @ 152bpm. He was given cardizem IV and started on a cardizem drip. Pt is being admitted for further evaluation and treatment of new onset afib including echo and cardiology consult. Discharge Exam GENERAL APPEARANCE NAD, activity normal for age, well developed/ well nourished, no cyanosis, pallor, or diaphoresis. EYES lids/conjunctiva normal. EARS/NOSE/THROAT Mucous membranes moist, nares normal, lips/teeth normal uvula midline without oral pharyngeal erythema, exudat e or swelling TMs normal bilaterally. No lymphangitis/lymphedema. HEAD/NECK normocephalic atraumatic, no facial trauma, neck is supple. RESPIRATORY respiratory effort normal, speaks in full sentences, no tripod position, no accessory muscle use. Lungs clear to auscultation without rhonchi, wheezes, rales CARDIAC Regular rate and rhythm, no edema. ABDOMINAL Soft, ND/NT. No evidence of fluid wave. No pulsatile masses on exam, rebound tenderness, Kohler sign or pain over Mcburney's point. MUSCLES/EXTREMITIES No abnormal range of motion, no swelling. SKIN Warm, pink and dry. No rashes, dermatoses, petechiae or lesions. NEUROLOGICAL Speech is clear and appropriate. Normal level of consciousness. Gait and coordination are normal. 5/5 strength in all extremities. PSYCH Normal mood and affect. Judgement/competence is appropriate Discharge Plan Discharge Items Patient Disposition: Home - Self-Care Reason For Visit: NEW ONSET AFIB WITH RVR Discharge Diagnosis: New onset afib with RVR Condition on Discharge: Fair Activity: Resume your previous activity Non-emergency contact: Primary Care Provider Call non-emergency contact if: you have any medication questions Follow-up/Referrals: Karen Lanier DO [Primary Care Provider] - Diet: Regular Addtl Attending Provider Instructions: Follow up with cardiology in 1 week Pending Studies at Discharge: No Stand-Alone Forms: My [facility], Smoking Cessation Medications and DC Order Prescriptions: New apixaban 5 mg tablet 5 mg PO BID Qty: 60 0RF diltiazem HCl 240 mg Capsule,Extended Release 24hr 240 mg PO QAM Qty: 30 0RF Eliquis 5 mg Tablet 5 mg PO BID Qty: 60 0RF Continued oxybutynin chloride 5 mg tablet 5 mg PO Q8H PRN (Reason: bladder spasms) Qty: 30 0RF Patient Comments: 10/14- no fill history unable to verify coQ10 (ubiquinol) 100 mg Capsule 0 mg PO QAM Patient Comments: 10/14- otc unable to verify Rx Instructions: patient unsure of strength at this date/time cholecalciferol (vitamin D3) [Vitamin D3] 10 mcg (400 unit) Tablet 0 unit PO QAM Patient Comments: 10/14- otc unable to verify Rx Instructions: patient unsure of strength at this date/time amlodipine [Norvasc] 5 mg tablet 5 mg PO QAM tamsulosin 0.4 mg capsule 0 mg PO QAM Patient Comments: 10/14- no fill history unable to verify Discharge Orders: Discharge Order (Routine); Ordered 10/16/25 Ordered By: John Mariano Admission Data Admit Date/Time: 10/14/25 15:21 Attending Provider: John Mariano Admit Provider: John Mariano Primary Care Provider: Karen Lanier Other Providers: Sebas Pedroza Samir A Hospital Stay Data Consultations 10/14/25 15:12 Consult Cardiology Routine 10/14/25 15:16 ED Decision to Admit Stat Procedures Performed Operation Date: 10/16/25 07:30 Actual Procedures p Echo Transesophageal - Sebas Pedroza MD s Echo Color Flow - Sebas Pedroza MD s Cardioversion - Sebas Pedroza MD Pending Results Patient Have Any Pending Studies at Discharge: No Discharge Instructions Given to Patient (Per Discharging Provider) Follow up with cardiology in 1 week Total Time Total Time Spent Total Time Spent (In Minutes): 50 Coding Level of Care Code 11629 INP/OBS DISCH >30 MIN Diagnoses New onset a-fib I48.91 Hypertension I10 Hypertension type: primary hypertension
[2025-10-16 11:56] VITALS: BP 161/109
--- NOTE | 2025-10-16 17:20 | XCELERA ---
[id number]
--- NOTE | 2025-10-16 18:55 | Electrocardiogram Report ---
Test Reason : Blood Pressure : */* mmHG Vent. Rate : 63 BPM Atrial Rate : 63 BPM P-R Int : 272 ms QRS Dur : 110 ms QT Int : 448 ms P-R-T Axes : 16 -36 5 degrees QTcB Int : 458 ms Sinus rhythm with 1st degree A-V block Possible Left atrial enlargement Left axis deviation Minimal voltage criteria for LVH, may be normal variant possible Inferior infarct (cited on or before 14-Oct-2025) Abnormal ECG When compared with ECG of 14-Oct-2025 12:05, Sinus rhythm has replaced Atrial fibrillation Vent. rate has decreased by 41 bpm Confirmed by Sebas Pedroza ([id number]) on 10/16/2025 6:55:18 PM Referred By: REFERRED SELF Confirmed By: Sebas Pedroza
== END 2025-10-16 12:43 | disposition home or self-care (01) | DRG 310 ==
LOC: SUATTDRO → ED 10:16 → EDINP 15:21 → 2E 18:19